=== PATIENT | female | born 1960 | race African-American/Black ===

== ENCOUNTER 2020-09-08 05:31 | Day surgery (SDC) | payer OTHER ==
[2020-09-06 17:18] VITALS: BMI 30.7
[2020-09-08] MEDS ORDERED: POVIDONE-IODINE OINTMENT 10% - 28.4 GM TUBE ONE (15:14)
[2020-09-08] MEDS ORDERED: HEPARIN NA (PORCINE) 5,000 UNITS/ML 1ML VIAL ONE ×2 (15:14→17:24)
[2020-09-08] MEDS ORDERED: LIDOCAINE HCL 1%, 10 MG/ML (20ML VIAL) ONE (15:14)
[2020-09-08] MEDS ORDERED: PROPOFOL 20 ML ONE (15:39)
[2020-09-08] MEDS ORDERED: MIDAZOLAM HCL 2 MG/2 ML SINGLE DOSE VIAL ONE (15:40)
[2020-09-08] MEDS ORDERED: oxyCODONE HCL 5 MG TABLET PO PRN (16:11)
[2020-09-08] MEDS ORDERED: ONDANSETRON 4 MG/2 ML VIAL IVPUSH PRN (16:11)
[2020-09-08] MEDS ORDERED: ceFAZolin SODIUM 1 GM VIAL IVPB ONE (16:35)
[2020-09-08] MEDS ORDERED: ceFAZolin SODIUM 1 GM VIAL ONE (16:36)
[2020-09-08] MEDS ORDERED: LIDOCAINE HCL 1%, 10 MG/ML (20ML VIAL) NR ONE (16:49)
[2020-09-08] MEDS ORDERED: ROCURONIUM BROMIDE 50 MG/5 ML SYRINGE ONE (16:52)
[2020-09-08] MEDS ORDERED: ONDANSETRON 4 MG/2 ML VIAL ONE (18:18)
[2020-09-08 19:13] VITALS: TEMP 98.2
[2020-09-08 20:04] VITALS: BP 139/84; PULSE 70
== END 2020-09-08 20:00 | disposition home or self-care (01) ==
LOC: JASU-SURG 05:31
PROVIDERS: ATTEND Surgery Vascular Surgery
PROC: 03180ZD Bypass Left Brachial Artery to Upper Arm Vein, Open Approach (ICD-10-PCS; principal; 2020-09-08 16:00)
DX: I12.0 Hypertensive chronic kidney disease with stage 5 chronic kidney disease or end stage renal disease (principal); N18.6 End stage renal disease
CPT/HCPCS: 94760; J1644

== ENCOUNTER 2020-11-28 15:07 | Inpatient (IN) | payer OTHER ==
[2020-11-28] MEDS ORDERED: SODIUM CHLORIDE 250 ML IV PRN ×2 (16:21→19:11)
[2020-11-28 16:46] LABS: BASO % 0.9 % (0-2.0); EOS % 3.6 % (0-4.5); HEMATOCRIT 28.4 % (32.4-45.2); HEMOGLOBIN 9.7 GM/dL (10.7-15.3); LYMPH % 25.1 % (8-40); MCHC 34.3 g/dl (32.0-36.0); MEAN CELL VOLUME 96.3 fl (80-96); MEAN PLT VOLUME 8.7 fl (7.5-11.1); MONO % 9.5 % (3.8-10.2); NEUT % 60.9 % (42.8-82.8); PLATELET COUNT 125 K/MM3 (134-434); RBC 2.94 M/mm3 (3.60-5.2); WHITE BLOOD COUNT 4.8 K/mm3 (4.0-10.0)
[2020-11-28 17:07] LABS: POTASSIUM 3.7 mmol/L (3.5-5.1)
[2020-11-28 17:09] LABS: BLOOD UREA NITROGEN 82.7 mg/dL (7-18); CALCIUM 8.5 mg/dL (8.5-10.1)
[2020-11-28 17:10] LABS: ALBUMIN 3.3 g/dl (3.4-5.0)
[2020-11-28 17:14] LABS: BILIRUBIN,TOTAL 0.4 mg/dL (0.2-1)
[2020-11-28] MEDS ORDERED: EPOETIN ALFA-EPBX 4,000 UNIT/ML VIAL SQ ONE ×3 (17:43→19:15)
[2020-11-28] MEDS ORDERED: HEPARIN NA (PORCINE) 5,000 UNITS/ML 1ML VIAL SQ SCH (22:00)
[2020-11-29 00:28] VITALS: BMI 28.0
[2020-11-29] MEDS ORDERED: LIDOCAINE 2.5%/PRILOCAINE 2.5% (5 Gram/TUBE) TP ONE (08:00)
[2020-11-29 09:11] LABS: MAGNESIUM 2.1 mg/dL (1.8-2.4)
[2020-11-29] MEDS ORDERED: amLODIPine BESYLATE 10 MG TABLET (FP) PO SCH (10:00)
[2020-11-29] MEDS ORDERED: ATENOLOL 25 MG TABLET (FP) PO SCH (10:00)
[2020-11-29] MEDS ORDERED: ABACAVIR/DOLUTEGRAVIR/LAMIVUDI (TRIUMEQ) TABLET -NF PO SCH (10:00)
[2020-11-29 10:05] LABS: POTASSIUM 3.7 mmol/L (3.5-5.1)
[2020-11-29 10:10] LABS: ALBUMIN 3.3 g/dl (3.4-5.0)
[2020-11-29 10:12] LABS: BILIRUBIN,TOTAL 0.4 mg/dL (0.2-1); CREATININE 5.3 mg/dL (0.55-1.3)
[2020-11-29 10:22] LABS: BLOOD UREA NITROGEN 53.2 mg/dL (7-18); CALCIUM 8.5 mg/dL (8.5-10.1)
[2020-11-29 10:37] LABS: HEMATOCRIT 26.4 % (32.4-45.2); HEMOGLOBIN 9.3 GM/dL (10.7-15.3); MCH 33.6 pg (25.7-33.7); MCHC 35.3 g/dl (32.0-36.0); MEAN PLT VOLUME 8.7 fl (7.5-11.1); PLATELET COUNT 118 K/MM3 (134-434); RBC 2.78 M/mm3 (3.60-5.2); RDW 14.9 % (11.6-15.6); WHITE BLOOD COUNT 5.1 K/mm3 (4.0-10.0)
[2020-11-29] MEDS ORDERED: LOSARTAN POTASSIUM 50 MG TABLET PO SCH (11:15)
[2020-11-29] MEDS ORDERED: PT OWN MED DRAWER 7, Y5N ONE (12:05)
[2020-11-29 13:19] VITALS: PULSE 78; TEMP 98.8
[2020-11-29 14:37] VITALS: BP 135/87
== END 2020-11-29 17:44 | disposition home or self-care (01) | DRG 683 ==
LOC: JER 15:07 → JERBED 16:22 → J6S 20:49
PROVIDERS: ADMIT Student in an Organized Health Care Education/Training Program; ATTEND Internal Medicine
PROC: 5A1D70Z Performance of Urinary Filtration, Intermittent, Less than 6 Hours Per Day (ICD-10-PCS; principal; 2020-11-28)
DX: N17.9 Acute kidney failure, unspecified (principal); I12.0 Hypertensive chronic kidney disease with stage 5 chronic kidney disease or end stage renal disease; N18.6 End stage renal disease; F17.210 Nicotine dependence, cigarettes, uncomplicated; D63.1 Anemia in chronic kidney disease; Z21 Asymptomatic human immunodeficiency virus [HIV] infection status; I16.0 Hypertensive urgency; N25.0 Renal osteodystrophy
CPT/HCPCS: 36415; 71045-TC-FY; 80053; 83735; 83970; 84100; 85025; 85027; 93005; 93010; 99285-25; C9803; Q5106; U0003

== ENCOUNTER 2020-12-07 11:37 | Inpatient (IN) | payer OTHER ==
[2020-12-07 13:03] LABS: BASO % 1.4 % (0-2.0); EOS % 4.6 % (0-4.5); HEMATOCRIT 27.8 % (32.4-45.2); HEMOGLOBIN 9.3 GM/dL (10.7-15.3); LYMPH % 25.8 % (8-40); MCH 33.1 pg (25.7-33.7); MCHC 33.3 g/dl (32.0-36.0); MEAN CELL VOLUME 99.4 fl (80-96); MEAN PLT VOLUME 8.7 fl (7.5-11.1); MONO % 8.7 % (3.8-10.2); NEUT % 59.5 % (42.8-82.8); PLATELET COUNT 139 K/MM3 (134-434); WHITE BLOOD COUNT 5.6 K/mm3 (4.0-10.0)
[2020-12-07 13:09] LABS: INR 1.01 (0.83-1.09); PROTHROMBIN TIME (PATIENT) 12.2 SEC (9.7-13.0)
[2020-12-07 13:11] LABS: ACTIVATED PTT 30.7 SECONDS (25.2-36.5)
[2020-12-07 13:29] LABS: POTASSIUM 3.7 mmol/L (3.5-5.1)
[2020-12-07 13:30] LABS: BLOOD UREA NITROGEN 49.3 mg/dL (7-18); CALCIUM 8.7 mg/dL (8.5-10.1)
[2020-12-07 13:31] LABS: ALBUMIN 3.2 g/dl (3.4-5.0)
[2020-12-07 13:34] LABS: CREATININE 5.2 mg/dL (0.55-1.3)
[2020-12-07 13:35] LABS: BILIRUBIN,TOTAL 0.4 mg/dL (0.2-1); TOT PROT 7.8 g/dl (6.4-8.2)
[2020-12-07] MEDS ORDERED: ACETAMINOPHEN 1000 MG/100 ML VIAL (NON FORMULARY) IVPB ONE (15:45)
[2020-12-07] MEDS ORDERED: ACETAMINOPHEN INJECTION 100 ML IVPB ONE ×2 (15:50→16:08)
[2020-12-07] MEDS ORDERED: morphine CARPU-JECT 2 MG/1 ML DISP.SYRIN IVPUSH ONE (20:24)
[2020-12-07] MEDS ORDERED: MORPHINE SULFATE 2 MG/ML VIAL ONE (20:49)
[2020-12-07] MEDS ORDERED: ACETAMINOPHEN 325 MG TABLET (FP) PO PRN (23:11)
[2020-12-07] MEDS ORDERED: VANCOMYCIN 1 GM in D5W (PRE-DOCKED) 1,000 MG/250 ML IVPB ONE (23:26)
[2020-12-08] MEDS ORDERED: amLODIPine BESYLATE 10 MG TABLET (FP) PO ONE (02:23)
[2020-12-08] MEDS: HEPARIN NA (PORCINE) 5,000 UNITS/ML 1ML VIAL SQ SCH ×3 (05:45→23:05)
[2020-12-08 07:38] LABS: EOS % 4.7 % (0-4.5); HEMATOCRIT 25.2 % (32.4-45.2); HEMOGLOBIN 8.6 GM/dL (10.7-15.3); LYMPH % 30.6 % (8-40); MCH 33.4 pg (25.7-33.7); MCHC 34.1 g/dl (32.0-36.0); MEAN CELL VOLUME 97.8 fl (80-96); MEAN PLT VOLUME 8.2 fl (7.5-11.1); MONO % 8.4 % (3.8-10.2); NEUT % 55.3 % (42.8-82.8); PLATELET COUNT 124 K/MM3 (134-434); RBC 2.58 M/mm3 (3.60-5.2); RDW 15.4 % (11.6-15.6)
[2020-12-08 08:19] LABS: POTASSIUM 3.4 mmol/L (3.5-5.1)
[2020-12-08 08:24] LABS: ALBUMIN 2.9 g/dl (3.4-5.0); MAGNESIUM 2.3 mg/dL (1.8-2.4)
[2020-12-08 08:27] LABS: CREATININE 5.1 mg/dL (0.55-1.3)
[2020-12-08 08:29] LABS: BILIRUBIN,TOTAL 0.4 mg/dL (0.2-1); TOT PROT 7.2 g/dl (6.4-8.2)
[2020-12-08] MEDS ORDERED: NICOTINE 14 MG/24 HOURS TOPICAL PATCH TD SCH (10:00)
[2020-12-08] MEDS ORDERED: LOSARTAN POTASSIUM 50 MG TABLET PO SCH (10:00)
[2020-12-08] MEDS ORDERED: ABACAVIR/DOLUTEGRAVIR/LAMIVUDI (TRIUMEQ) TABLET -NF PO SCH (10:00)
[2020-12-08] MEDS ORDERED: VANCOMYCIN 1 GM in D5W (PRE-DOCKED) 1,000 MG/250 ML IVPB SCH (10:00)
[2020-12-08] MEDS ORDERED: ATENOLOL 25 MG TABLET (FP) PO SCH (10:00)
[2020-12-08] MEDS ORDERED: amLODIPine BESYLATE 10 MG TABLET (FP) PO SCH (10:00)
[2020-12-08] MEDS ORDERED: VANCOMYCIN 1 GM in D5W (PRE-DOCKED) 1,000 MG/250 ML IVPB ONE (11:30)
[2020-12-08] MEDS ORDERED: SODIUM CHLORIDE 250 ML IV PRN ×3 (12:20→20:44)
[2020-12-08] MEDS ORDERED: ACETAMINOPHEN 1000 MG/100 ML VIAL (NON FORMULARY) IVPB ONE (14:04)
[2020-12-08] MEDS ORDERED: HEPARIN NA (PORCINE) 5,000 UNITS/ML 1ML VIAL ONE (15:53)
[2020-12-08] MEDS ORDERED: LIDOCAINE HCL 1%, 10 MG/ML (20ML VIAL) ONE (15:53)
[2020-12-08] MEDS ORDERED: LIDOCAINE HCL 1%, 10 MG/ML (20ML VIAL) INF ONE (16:51)
[2020-12-08] MEDS ORDERED: LIDOCAINE 2.5%/PRILOCAINE 2.5% 30 GRAM TUBE TP ONE ×2 (17:00→19:11)
[2020-12-08] MEDS ORDERED: EPOETIN ALFA-EPBX 20,000 UNIT/ML VIAL SQ ONE ×2 (17:15→20:45)
[2020-12-08] MEDS ORDERED: ceFAZolin SODIUM 1 GM VIAL IVPB ONE (17:27)
[2020-12-08] MEDS ORDERED: MIDAZOLAM HCL 2 MG/2 ML SINGLE DOSE VIAL ONE ×2 (17:31→18:35)
[2020-12-08] MEDS ORDERED: ceFAZolin SODIUM 1 GM VIAL ONE (17:37)
[2020-12-08] MEDS ORDERED: PROPOFOL 20 ML ONE (17:50)
[2020-12-08] MEDS ORDERED: ONDANSETRON 4 MG/2 ML VIAL IVPUSH PRN (19:08)
[2020-12-08] MEDS ORDERED: LOSARTAN POTASSIUM 50 MG TABLET PO ONE ×2 (21:20→21:21)
[2020-12-08] MEDS: ACETAMINOPHEN 325 MG TABLET (FP) PO PRN (23:02)
[2020-12-09] MEDS: ACETAMINOPHEN 325 MG TABLET (FP) PO PRN ×3 (04:36→20:21)
[2020-12-09] MEDS: HEPARIN NA (PORCINE) 5,000 UNITS/ML 1ML VIAL SQ SCH ×3 (06:18→21:26)
[2020-12-09 07:49] LABS: HEMATOCRIT 25.6 % (32.4-45.2); HEMOGLOBIN 8.5 GM/dL (10.7-15.3); MCH 32.6 pg (25.7-33.7); MEAN CELL VOLUME 98.8 fl (80-96); MEAN PLT VOLUME 8.5 fl (7.5-11.1); PLATELET COUNT 123 K/MM3 (134-434); RBC 2.59 M/mm3 (3.60-5.2); RDW 15.3 % (11.6-15.6); WHITE BLOOD COUNT 6.4 K/mm3 (4.0-10.0)
[2020-12-09 08:32] LABS: POTASSIUM 3.6 mmol/L (3.5-5.1)
[2020-12-09 08:43] LABS: CALCIUM 8.9 mg/dL (8.5-10.1)
[2020-12-09 08:44] LABS: BLOOD UREA NITROGEN 36.2 mg/dL (7-18); MAGNESIUM 2.2 mg/dL (1.8-2.4)
[2020-12-09 08:45] LABS: BILIRUBIN,TOTAL 0.6 mg/dL (0.2-1)
[2020-12-09 08:46] LABS: CREATININE 4.3 mg/dL (0.55-1.3); PHOSPHOROUS 3.3 mg/dL (2.5-4.9)
[2020-12-09 08:48] LABS: TOT PROT 7.3 g/dl (6.4-8.2)
[2020-12-09] MEDS: NICOTINE 14 MG/24 HOURS TOPICAL PATCH TD SCH (09:18)
[2020-12-09] MEDS: amLODIPine BESYLATE 10 MG TABLET (FP) PO SCH (09:19)
[2020-12-09] MEDS: LOSARTAN POTASSIUM 50 MG TABLET PO SCH (09:19)
[2020-12-09] MEDS: ATENOLOL 25 MG TABLET (FP) PO SCH (09:19)
[2020-12-09] MEDS: ABACAVIR/DOLUTEGRAVIR/LAMIVUDI (TRIUMEQ) TABLET -NF PO SCH (09:22)
[2020-12-09] MEDS ORDERED: amLODIPine BESYLATE 10 MG TABLET (FP) PO SCH (10:00)
[2020-12-09] MEDS ORDERED: VANCOMYCIN 1 GM in D5W (PRE-DOCKED) 1,000 MG/250 ML IVPB ONE (13:52)
[2020-12-10] MEDS: HEPARIN NA (PORCINE) 5,000 UNITS/ML 1ML VIAL SQ SCH (05:57)
[2020-12-10] MEDS: ACETAMINOPHEN 325 MG TABLET (FP) PO PRN (06:26)
[2020-12-10 08:09] LABS: BASO % 0.9 % (0-2.0); HEMATOCRIT 24.8 % (32.4-45.2); HEMOGLOBIN 8.4 GM/dL (10.7-15.3); MCH 33.5 pg (25.7-33.7); MCHC 33.9 g/dl (32.0-36.0); MEAN CELL VOLUME 98.8 fl (80-96); MEAN PLT VOLUME 8.6 fl (7.5-11.1); MONO % 8.8 % (3.8-10.2); NEUT % 59.3 % (42.8-82.8); PLATELET COUNT 109 K/MM3 (134-434); RBC 2.51 M/mm3 (3.60-5.2); RDW 14.9 % (11.6-15.6)
[2020-12-10 08:23] LABS: BILIRUBIN,TOTAL 0.6 mg/dL (0.2-1); BLOOD UREA NITROGEN 44.3 mg/dL (7-18); CALCIUM 8.4 mg/dL (8.5-10.1); CREATININE 5.9 mg/dL (0.55-1.3); PHOSPHOROUS 3.2 mg/dL (2.5-4.9); POTASSIUM 3.3 mmol/L (3.5-5.1); TOT PROT 7.1 g/dl (6.4-8.2)
[2020-12-10 09:41] VITALS: BP 150/85; PULSE 59; TEMP 98.7
[2020-12-10] MEDS: amLODIPine BESYLATE 10 MG TABLET (FP) PO SCH (09:41)
[2020-12-10] MEDS: ATENOLOL 25 MG TABLET (FP) PO SCH (09:41)
[2020-12-10] MEDS: LOSARTAN POTASSIUM 50 MG TABLET PO SCH (09:41)
[2020-12-10] MEDS: ABACAVIR/DOLUTEGRAVIR/LAMIVUDI (TRIUMEQ) TABLET -NF PO SCH (09:42)
[2020-12-10] MEDS: NICOTINE 14 MG/24 HOURS TOPICAL PATCH TD SCH (09:42)
== END 2020-12-10 11:49 | disposition home or self-care (01) | DRG 252 ==
LOC: JER 11:37 → JERBED 19:39 → J7W 12-08 00:49
PROVIDERS: ADMIT Internal Medicine; ATTEND Internal Medicine
PROC: 037Y3ZZ Dilation of Upper Artery, Percutaneous Approach (ICD-10-PCS; 2020-12-08)
PROC: B51NYZZ Fluoroscopy of Left Upper Extremity Veins using Other Contrast (ICD-10-PCS; 2020-12-08)
PROC: 3E03317 Introduction of Other Thrombolytic into Peripheral Vein, Percutaneous Approach (ICD-10-PCS; 2020-12-08)
PROC: 02H633Z Insertion of Infusion Device into Right Atrium, Percutaneous Approach (ICD-10-PCS; 2020-12-08)
PROC: B548ZZA Ultrasonography of Superior Vena Cava, Guidance (ICD-10-PCS; 2020-12-08)
PROC: 05CY3ZZ Extirpation of Matter from Upper Vein, Percutaneous Approach (ICD-10-PCS; principal; 2020-12-08 17:30)
DX: T82.868A Thrombosis due to vascular prosthetic devices, implants and grafts, initial encounter (principal); N18.6 End stage renal disease; I12.0 Hypertensive chronic kidney disease with stage 5 chronic kidney disease or end stage renal disease; Y83.8 Other surgical procedures as the cause of abnormal reaction of the patient, or of later complication, without mention of misadventure at the time of the procedure; Z99.2 Dependence on renal dialysis; E66.9 Obesity, unspecified; D63.1 Anemia in chronic kidney disease; Z68.30 Body mass index [BMI] 30.0-30.9, adult; Z21 Asymptomatic human immunodeficiency virus [HIV] infection status
CPT/HCPCS: 36415; 71045-TC-FY; 76000-TC-FY; 80053; 82607; 82728; 82746; 83540; 83550; 83735; 84100; 85025; 85027; 85045; 85610; 85730; 86850; 86870; 86900; 86901; 86902; 86922; 87040; 93005; 93010; 93930; 93971; 94760; 99285-25; C9803; G0480; J0131; J1644; U0003

== ENCOUNTER 2021-02-01 04:25 | Day surgery (SDC) | payer OTHER ==
[2021-01-30 10:11] VITALS: BMI 25.9
[~2021-02-01 04:25] MED LIST: LIDOCAINE HCL 1%, 10 MG/ML (20ML VIAL) NR ONE
[2021-02-01 13:48] VITALS: BP 130/72; PULSE 57; TEMP 98
[2021-02-01] MEDS ORDERED: HEPARIN NA (PORCINE) 5,000 UNITS/ML 1ML VIAL ONE (14:25)
[2021-02-01] MEDS ORDERED: LIDOCAINE HCL 1%, 10 MG/ML (20ML VIAL) ONE (14:25)
== END 2021-02-01 17:56 | disposition home or self-care (01) ==
LOC: JASU-SURG 04:25
PROVIDERS: ATTEND Surgery Vascular Surgery
DX: Z53.8 Procedure and treatment not carried out for other reasons (principal)
CPT/HCPCS: 36415; 84132; J1644

== ENCOUNTER 2021-02-08 04:47 | Day surgery (SDC) | payer OTHER ==
[2021-02-08] MEDS ORDERED: HEPARIN NA (PORCINE) 5,000 UNITS/ML 1ML VIAL ONE ×2 (07:18→09:49)
[2021-02-08] MEDS ORDERED: POVIDONE-IODINE OINTMENT 10% - 28.4 GM TUBE ONE (07:19)
[2021-02-08] MEDS ORDERED: LIDOCAINE HCL 1%, 10 MG/ML (20ML VIAL) ONE (07:19)
[2021-02-08 08:04] VITALS: BMI 25.9
[2021-02-08 08:35] LABS: HEMATOCRIT 34.8 % (32.4-45.2); HEMOGLOBIN 11.4 GM/dL (10.7-15.3); MCH 33.9 pg (25.7-33.7); MCHC 32.6 g/dl (32.0-36.0); MEAN PLT VOLUME 9.2 fl (7.5-11.1); PLATELET COUNT 142 K/MM3 (134-434); RBC 3.35 M/mm3 (3.60-5.2); RDW 14.5 % (11.6-15.6); WHITE BLOOD COUNT 5.7 K/mm3 (4.0-10.0)
[2021-02-08 08:43] LABS: INR 1.07 (0.83-1.09); PROTHROMBIN TIME (PATIENT) 13.1 SEC (9.7-13.0)
[2021-02-08 08:45] LABS: ACTIVATED PTT 27.4 SECONDS (25.2-36.5)
[2021-02-08 09:01] LABS: BLOOD UREA NITROGEN 35.6 mg/dL (7-18)
[2021-02-08 09:05] LABS: CREATININE 6.6 mg/dL (0.55-1.3)
[2021-02-08] MEDS ORDERED: PROPOFOL 20 ML ONE (09:22)
[2021-02-08] MEDS ORDERED: MIDAZOLAM HCL 2 MG/2 ML SINGLE DOSE VIAL ONE (09:22)
[2021-02-08] MEDS ORDERED: ceFAZolin 2 GRAM PREMIX BAG IVPB ONE (09:25)
[2021-02-08] MEDS ORDERED: ceFAZolin SODIUM 1 GM VIAL ONE (09:25)
[2021-02-08] MEDS ORDERED: LIDOCAINE HCL 1%, 10 MG/ML (20ML VIAL) NR ONE (09:29)
[2021-02-08] MEDS ORDERED: POVIDONE-IODINE OINTMENT 10% - 28.4 GM TUBE TP ONE (10:25)
[2021-02-08] MEDS ORDERED: ACETAMINOPHEN 325 MG TABLET (FP) ONE (11:31)
[2021-02-08] MEDS ORDERED: ACETAMINOPHEN 325 MG TABLET (FP) PO ONE (11:40)
[2021-02-08] MEDS ORDERED: ONDANSETRON 4 MG/2 ML VIAL IVPUSH PRN (12:20)
[2021-02-08] MEDS ORDERED: ACETAMINOPHEN 325 MG TABLET (FP) PO PRN (12:20)
[2021-02-08] MEDS ORDERED: oxyCODONE HCL 5 MG TABLET PO PRN ×2 (12:20)
[2021-02-08] MEDS ORDERED: LACTATED RINGERS SOLUTION 1,000 ML IV SCH (12:30)
[2021-02-08 15:29] VITALS: TEMP 97.7
[2021-02-08 18:03] VITALS: BP 120/70; PULSE 70
== END 2021-02-08 12:05 | disposition home or self-care (01) ==
LOC: JASU-SURG 04:47
PROVIDERS: ATTEND Surgery Vascular Surgery
PROC: 03170ZD Bypass Right Brachial Artery to Upper Arm Vein, Open Approach (ICD-10-PCS; principal; 2021-02-08 08:30)
DX: I12.0 Hypertensive chronic kidney disease with stage 5 chronic kidney disease or end stage renal disease (principal); N18.6 End stage renal disease; Z99.2 Dependence on renal dialysis
CPT/HCPCS: 36415; 80048; 85027; 85610; 85730; 94760; J1644

== ENCOUNTER 2021-05-13 10:51 | Emergency (ER) | payer OTHER ==
[2021-05-13 11:06] VITALS: BP 148/99; PULSE 85; TEMP 97; BMI 29.6
== END 2021-05-13 12:52 | disposition home or self-care (01) ==
LOC: JER 10:51
DX: M25.551 Pain in right hip (principal)
CPT/HCPCS: 73523-TC-FY; 99283-25

== ENCOUNTER 2021-05-16 23:57 | Inpatient (IN) | payer OTHER ==
[2021-05-17 01:44] LABS: BASO % 0.4 % (0-2.0); EOS % 0.4 % (0-4.5); HEMATOCRIT 21.7 % (32.4-45.2); HEMOGLOBIN 7.4 GM/dL (10.7-15.3); LYMPH % 9.5 % (8-40); MCH 33.6 pg (25.7-33.7); MCHC 34.1 g/dl (32.0-36.0); MEAN CELL VOLUME 98.4 fl (80-96); MEAN PLT VOLUME 8.2 fl (7.5-11.1); MONO % 10.4 % (3.8-10.2); NEUT % 79.3 % (42.8-82.8); PLATELET COUNT 405 10^3/uL (134-434); RBC 2.21 M/mm3 (3.60-5.2); RDW 16.5 % (11.6-15.6)
[2021-05-17 02:10] LABS: CHLORIDE 102 mmol/L (98-107); SODIUM 135 mmol/L (136-145)
[2021-05-17 02:11] LABS: CALCIUM 8.1 mg/dL (8.5-10.1)
[2021-05-17 02:13] LABS: ALBUMIN 2.1 g/dl (3.4-5.0); ANION GAP 13 MMOL/L (8-16); BLOOD UREA NITROGEN 82.3 mg/dL (7-18); CO2 19 mmol/L (21-32); GLUCOSE,RANDOM 125 mg/dL (74-106); MAGNESIUM 2.2 mg/dL (1.8-2.4)
[2021-05-17 02:16] LABS: CREATININE 7.1 mg/dL (0.55-1.3); SGOT/AST 10 U/L (15-37); SGPT/ALT 17 U/L (13-61)
[2021-05-17 02:19] LABS: ALK PHOS 153 U/L (45-117)
[2021-05-17] MEDS ORDERED: ACETAMINOPHEN 1000 MG/100 ML VIAL (NON FORMULARY) IVPB ONE ×2 (02:33→11:19)
[2021-05-17] MEDS ORDERED: ACETAMINOPHEN INJECTION 100 ML IVPB ONE (02:34)
[2021-05-17 03:22] LABS: BILIRUBIN,TOTAL 0.5 mg/dL (0.2-1); N-TERMINAL BNP 36188.6 pg/ml (5-125)
[2021-05-17 08:10] LABS: BASO % 0.2 % (0-2.0); EOS % 0.6 % (0-4.5); HEMATOCRIT 20.8 % (32.4-45.2); LYMPH % 14.9 % (8-40); MCH 33.6 pg (25.7-33.7); MCHC 33.2 g/dl (32.0-36.0); MEAN CELL VOLUME 101.4 fl (80-96); MEAN PLT VOLUME 7.5 fl (7.5-11.1); MONO % 11.1 % (3.8-10.2); NEUT % 73.2 % (42.8-82.8); PLATELET COUNT 301 10^3/uL (134-434); RBC 2.06 M/mm3 (3.60-5.2); RDW 15.4 % (11.6-15.6); RETICULOCYTES 3.14 % (0.5-1.5); WHITE BLOOD COUNT 8.5 K/mm3 (4.0-10.0)
[2021-05-17 08:21] LABS: CALCIUM 8.1 mg/dL (8.5-10.1)
[2021-05-17 08:22] LABS: ALBUMIN 1.9 g/dl (3.4-5.0); BLOOD UREA NITROGEN 85.1 mg/dL (7-18)
[2021-05-17 08:24] LABS: MAGNESIUM 2.4 mg/dL (1.8-2.4)
[2021-05-17 08:26] LABS: PHOSPHOROUS 7.1 mg/dL (2.5-4.9)
[2021-05-17 08:27] LABS: BILIRUBIN,TOTAL 0.6 mg/dL (0.2-1); CREATININE 7.1 mg/dL (0.55-1.3)
[2021-05-17 08:29] LABS: TOT PROT 7.4 g/dl (6.4-8.2)
[2021-05-17 08:40] LABS: HEMOGLOBIN 6.9 GM/dL (10.7-15.3)
[2021-05-17] MEDS ORDERED: HEPARIN NA (PORCINE) 5,000 UNITS/ML 1ML VIAL ONE (08:59)
[2021-05-17] MEDS: HEPARIN NA (PORCINE) 5,000 UNITS/ML 1ML VIAL SQ SCH ×3 (08:59→22:31)
[2021-05-17 09:44] LABS: EPI CELLS >36 /uL (0-25.1); HYALINE CASTS 5 /uL (0-3.1); URINE APPEARANCE TURBID; URINE BACTERIA 3790 /uL (0-1359); URINE BILIRUBIN NEGATIVE (NEGATIVE); URINE COLOR YELLOW; URINE GLUCOSE (UA) NEGATIVE (NEGATIVE); URINE KETONE NEGATIVE (NEGATIVE); URINE LEUK ESTERASE 1+ (NEGATIVE); URINE NITRITE NEGATIVE (NEGATIVE); URINE PROTEIN 1+ (NEGATIVE); URINE RBC 15 /uL (0-23.9); URINE UROBILINOGEN 0.2 mg/dL (0.2-1.0); URINE WBC 144 /uL (0-25.8)
[2021-05-17 10:44] LABS: YEAST NON SEEN (NEGATIVE)
[2021-05-17] MEDS ORDERED: EPOETIN ALFA-EPBX 20,000 UNIT/ML VIAL SQ ONE ×2 (10:52)
[2021-05-17] MEDS ORDERED: SODIUM CHLORIDE 250 ML IV PRN ×2 (10:52→16:54)
[2021-05-17] MEDS: amLODIPine BESYLATE 5 MG TABLET (FP) PO SCH (11:00)
[2021-05-17] MEDS ORDERED: PT OWN MED DRAWER 7, Y5N ONE (11:31)
[2021-05-17 12:13] VITALS: BMI 29.2
[2021-05-17] MEDS ORDERED: HEPARIN NA (PORCINE) 5,000 UNITS/ML 1ML VIAL IVPUSH ONE ×2 (12:30→14:30)
[2021-05-17] MEDS ORDERED: EPOETIN ALFA-EPBX 10,000 UNIT, EPOETIN ALFA-EPBX 4,000 UNIT IVPUSH ONE (13:00)
[2021-05-17] MEDS: ABACAVIR/DOLUTEGRAVIR/LAMIVUDI (TRIUMEQ) TABLET -NF PO SCH (13:27)
[2021-05-18] MEDS ORDERED: ACETAMINOPHEN 1000 MG/100 ML VIAL (NON FORMULARY) IVPB ONE (00:12)
[2021-05-18] MEDS: HEPARIN NA (PORCINE) 5,000 UNITS/ML 1ML VIAL SQ SCH ×3 (06:27→21:24)
[2021-05-18 09:29] LABS: BASO % 0.2 % (0-2.0); EOS % 0.4 % (0-4.5); HEMATOCRIT 25.3 % (32.4-45.2); HEMOGLOBIN 8.5 GM/dL (10.7-15.3); LYMPH % 12.9 % (8-40); MCH 33.1 pg (25.7-33.7); MCHC 33.5 g/dl (32.0-36.0); MEAN CELL VOLUME 98.7 fl (80-96); MEAN PLT VOLUME 7.9 fl (7.5-11.1); MONO % 8.3 % (3.8-10.2); NEUT % 78.2 % (42.8-82.8); PLATELET COUNT 362 10^3/uL (134-434); RBC 2.57 M/mm3 (3.60-5.2); RDW 16.4 % (11.6-15.6); WHITE BLOOD COUNT 11.4 K/mm3 (4.0-10.0)
[2021-05-18] MEDS ORDERED: VANCOMYCIN 1 GRAM (PRE-DOCKED) 1,000 MG/250 ML BAG IVPB ONE (09:45)
[2021-05-18 09:52] LABS: ALBUMIN 2.1 g/dl (3.4-5.0)
[2021-05-18 09:54] LABS: CREATININE 4.8 mg/dL (0.55-1.3)
[2021-05-18 09:56] LABS: BILIRUBIN,TOTAL 0.6 mg/dL (0.2-1); TOT PROT 8.4 g/dl (6.4-8.2)
[2021-05-18] MEDS: LOSARTAN POTASSIUM 50 MG TABLET PO SCH (09:56)
[2021-05-18] MEDS: amLODIPine BESYLATE 5 MG TABLET (FP) PO SCH (09:57)
[2021-05-18] MEDS: ATENOLOL 25 MG TABLET (FP) PO SCH (09:58)
[2021-05-18 10:00] LABS: CALCIUM 8.4 mg/dL (8.5-10.1)
[2021-05-18] MEDS ORDERED: EPOETIN ALFA-EPBX 10,000 UNIT, EPOETIN ALFA-EPBX 3,000 UNIT, EPOETIN ALFA-EPBX 2,000 UNIT IVPUSH ONE (10:00)
[2021-05-18] MEDS ORDERED: ACETAMINOPHEN 325 MG TABLET (FP) PO PRN (10:20)
[2021-05-18 10:30] LABS: BLOOD UREA NITROGEN 46.5 mg/dL (7-18)
[2021-05-18] MEDS ORDERED: HEPARIN NA (PORCINE) 5,000 UNITS/ML 1ML VIAL IVPUSH ONE (10:30)
[2021-05-18] MEDS: ACETAMINOPHEN 325 MG TABLET (FP) PO PRN ×2 (10:50→21:25)
[2021-05-18] MEDS: ABACAVIR/DOLUTEGRAVIR/LAMIVUDI (TRIUMEQ) TABLET -NF PO SCH (14:30)
[2021-05-18] MEDS ORDERED: EPOETIN ALFA-EPBX 20,000 UNIT/ML VIAL SQ ONE (16:54)
[2021-05-19] MEDS: ACETAMINOPHEN 325 MG TABLET (FP) PO PRN ×2 (05:14→17:23)
[2021-05-19] MEDS: HEPARIN NA (PORCINE) 5,000 UNITS/ML 1ML VIAL SQ SCH ×3 (05:15→21:11)
[2021-05-19 09:58] LABS: BASO % 0.3 % (0-2.0); EOS % 0.4 % (0-4.5); HEMATOCRIT 23.5 % (32.4-45.2); LYMPH % 9.2 % (8-40); MCH 33.2 pg (25.7-33.7); MCHC 33.9 g/dl (32.0-36.0); MEAN CELL VOLUME 98.2 fl (80-96); MEAN PLT VOLUME 7.5 fl (7.5-11.1); MONO % 9.7 % (3.8-10.2); NEUT % 80.4 % (42.8-82.8); PLATELET COUNT 309 10^3/uL (134-434); RBC 2.39 M/mm3 (3.60-5.2); RDW 16.8 % (11.6-15.6); WHITE BLOOD COUNT 11.3 K/mm3 (4.0-10.0)
[2021-05-19 10:24] LABS: CALCIUM 8.3 mg/dL (8.5-10.1)
[2021-05-19 10:25] LABS: ALBUMIN 1.9 g/dl (3.4-5.0); BLOOD UREA NITROGEN 34.2 mg/dL (7-18)
[2021-05-19] MEDS: LOSARTAN POTASSIUM 50 MG TABLET PO SCH (10:28)
[2021-05-19 10:29] LABS: CREATININE 4.4 mg/dL (0.55-1.3)
[2021-05-19] MEDS: ATENOLOL 25 MG TABLET (FP) PO SCH (10:29)
[2021-05-19] MEDS: ABACAVIR/DOLUTEGRAVIR/LAMIVUDI (TRIUMEQ) TABLET -NF PO SCH (10:29)
[2021-05-19] MEDS: amLODIPine BESYLATE 5 MG TABLET (FP) PO SCH (10:29)
[2021-05-19 10:30] LABS: BILIRUBIN,TOTAL 0.6 mg/dL (0.2-1)
[2021-05-19 10:36] LABS: TOT PROT 8.7 g/dl (6.4-8.2)
[2021-05-19] MEDS ORDERED: ONDANSETRON 4 MG/2 ML VIAL IVPUSH PRN (14:39)
[2021-05-19] MEDS ORDERED: ONDANSETRON 4 MG/2 ML VIAL IVPUSH ONE (15:00)
[2021-05-19] MEDS ORDERED: ONDANSETRON *ODT* 4 MG TABLET SL ONE (15:00)
[2021-05-19] MEDS ORDERED: CEFAZOLIN 2 GM in DEXTROSE 5%-WATER - 100 ML IVPB ONE (17:00)
[2021-05-20] MEDS: HEPARIN NA (PORCINE) 5,000 UNITS/ML 1ML VIAL SQ SCH ×3 (06:33→21:42)
[2021-05-20] MEDS: ACETAMINOPHEN 325 MG TABLET (FP) PO PRN (06:57)
[2021-05-20 08:24] LABS: BASO % 0.4 % (0-2.0); EOS % 0.9 % (0-4.5); HEMATOCRIT 23.4 % (32.4-45.2); LYMPH % 12.1 % (8-40); MCH 34.1 pg (25.7-33.7); MCHC 34.3 g/dl (32.0-36.0); MEAN CELL VOLUME 99.4 fl (80-96); MEAN PLT VOLUME 8.1 fl (7.5-11.1); NEUT % 77.6 % (42.8-82.8); PLATELET COUNT 329 10^3/uL (134-434); RBC 2.36 M/mm3 (3.60-5.2); RDW 16.1 % (11.6-15.6); WHITE BLOOD COUNT 10.7 K/mm3 (4.0-10.0)
[2021-05-20 08:50] LABS: BLOOD UREA NITROGEN 48.1 mg/dL (7-18); CALCIUM 8.4 mg/dL (8.5-10.1); MAGNESIUM 2.1 mg/dL (1.8-2.4)
[2021-05-20 08:53] LABS: CREATININE 5.7 mg/dL (0.55-1.3)
[2021-05-20 08:55] LABS: PHOSPHOROUS 4.6 mg/dL (2.5-4.9)
[2021-05-20] MEDS ORDERED: PT OWN MED DRAWER 7, Y5N ONE (10:24)
[2021-05-20] MEDS: ATENOLOL 25 MG TABLET (FP) PO SCH (10:52)
[2021-05-20] MEDS: amLODIPine BESYLATE 5 MG TABLET (FP) PO SCH (10:52)
[2021-05-20] MEDS: ABACAVIR/DOLUTEGRAVIR/LAMIVUDI (TRIUMEQ) TABLET -NF PO SCH (10:52)
[2021-05-20] MEDS: LOSARTAN POTASSIUM 50 MG TABLET PO SCH (10:57)
[2021-05-20] MEDS ORDERED: LORazepam 1 MG TABLET PO PRN (12:22)
[2021-05-20] MEDS ORDERED: ACETAMINOPHEN 1000 MG/100 ML VIAL (NON FORMULARY) IVPB ONE (13:00)
[2021-05-20] MEDS ORDERED: CEFAZOLIN 1 GM/D5W 1 GM/50 ML BAG IVPB SCH (15:00)
[2021-05-21] MEDS: ACETAMINOPHEN 325 MG TABLET (FP) PO PRN ×3 (02:07→16:08)
[2021-05-21] MEDS: HEPARIN NA (PORCINE) 5,000 UNITS/ML 1ML VIAL SQ SCH ×3 (07:08→21:29)
[2021-05-21 08:45] LABS: HEMATOCRIT 24.5 % (32.4-45.2); HEMOGLOBIN 8.2 GM/dL (10.7-15.3); MCH 33.4 pg (25.7-33.7); MCHC 33.5 g/dl (32.0-36.0); MEAN CELL VOLUME 99.9 fl (80-96); MEAN PLT VOLUME 7.9 fl (7.5-11.1); PLATELET COUNT 322 10^3/uL (134-434); RBC 2.45 M/mm3 (3.60-5.2); RDW 16.6 % (11.6-15.6)
[2021-05-21 09:09] LABS: ALBUMIN 1.9 g/dl (3.4-5.0); BLOOD UREA NITROGEN 72.3 mg/dL (7-18); CALCIUM 8.1 mg/dL (8.5-10.1); MAGNESIUM 2.3 mg/dL (1.8-2.4)
[2021-05-21 09:11] LABS: PHOSPHOROUS 5.8 mg/dL (2.5-4.9)
[2021-05-21] MEDS ORDERED: PT OWN MED DRAWER 7, Y5N ONE ×4 (09:11→20:59)
[2021-05-21 09:12] LABS: BILIRUBIN,TOTAL 0.4 mg/dL (0.2-1); TOT PROT 7.6 g/dl (6.4-8.2)
[2021-05-21] MEDS: ABACAVIR/DOLUTEGRAVIR/LAMIVUDI (TRIUMEQ) TABLET -NF PO SCH (09:49)
[2021-05-21] MEDS ORDERED: EPOETIN ALFA-EPBX 20,000 UNIT/ML VIAL IVPUSH ONE (10:00)
[2021-05-21] MEDS: LOSARTAN POTASSIUM 50 MG TABLET PO SCH (10:00)
[2021-05-21] MEDS: amLODIPine BESYLATE 5 MG TABLET (FP) PO SCH (10:00)
[2021-05-21] MEDS ORDERED: SODIUM CHLORIDE 250 ML IV PRN (10:00)
[2021-05-21] MEDS: ATENOLOL 25 MG TABLET (FP) PO SCH (10:00)
[2021-05-21] MEDS: NAFCILLIN - 2 GM in DEXTROSE 5%-WATER - 100 ML IVPB SCH ×3 (16:05→21:31)
[2021-05-22] MEDS ORDERED: PT OWN MED DRAWER 7, Y5N ONE ×6 (01:37→22:06)
[2021-05-22] MEDS: NAFCILLIN - 2 GM in DEXTROSE 5%-WATER - 100 ML IVPB SCH ×6 (01:53→22:09)
[2021-05-22] MEDS: HEPARIN NA (PORCINE) 5,000 UNITS/ML 1ML VIAL SQ SCH ×3 (05:17→22:09)
[2021-05-22 10:17] LABS: BASO % 0.7 % (0-2.0); EOS % 0.9 % (0-4.5); HEMATOCRIT 24.8 % (32.4-45.2); HEMOGLOBIN 8.1 GM/dL (10.7-15.3); LYMPH % 18.5 % (8-40); MCH 32.8 pg (25.7-33.7); MCHC 32.8 g/dl (32.0-36.0); MEAN PLT VOLUME 8.4 fl (7.5-11.1); MONO % 9.6 % (3.8-10.2); NEUT % 70.3 % (42.8-82.8); PLATELET COUNT 268 10^3/uL (134-434); RBC 2.48 M/mm3 (3.60-5.2); RDW 16.6 % (11.6-15.6); WHITE BLOOD COUNT 6.8 K/mm3 (4.0-10.0)
[2021-05-22 10:29] LABS: CHLORIDE 100 mmol/L (98-107); SODIUM 137 mmol/L (136-145)
[2021-05-22 10:32] LABS: CALCIUM 7.7 mg/dL (8.5-10.1)
[2021-05-22 10:33] LABS: ALBUMIN 1.8 g/dl (3.4-5.0); ANION GAP 7 MMOL/L (8-16); CO2 31 mmol/L (21-32); GLUCOSE,RANDOM 116 mg/dL (74-106); MAGNESIUM 1.9 mg/dL (1.8-2.4)
[2021-05-22 10:35] LABS: SGPT/ALT < 6 U/L (13-61)
[2021-05-22 10:36] LABS: CREATININE 4.6 mg/dL (0.55-1.3); PHOSPHOROUS 4.5 mg/dL (2.5-4.9); SGOT/AST 10 U/L (15-37)
[2021-05-22 10:37] LABS: TOT PROT 7.5 g/dl (6.4-8.2)
[2021-05-22 10:38] LABS: ALK PHOS 140 U/L (45-117)
[2021-05-22 10:39] LABS: BLOOD UREA NITROGEN 38.2 mg/dL (7-18)
[2021-05-22] MEDS: LOSARTAN POTASSIUM 50 MG TABLET PO SCH (11:09)
[2021-05-22] MEDS: ATENOLOL 25 MG TABLET (FP) PO SCH (11:09)
[2021-05-22] MEDS: amLODIPine BESYLATE 5 MG TABLET (FP) PO SCH (11:09)
[2021-05-22] MEDS: ABACAVIR/DOLUTEGRAVIR/LAMIVUDI (TRIUMEQ) TABLET -NF PO SCH (11:10)
[2021-05-22] MEDS ORDERED: SODIUM CHLORIDE 250 ML IV PRN (12:28)
[2021-05-23] MEDS ORDERED: PT OWN MED DRAWER 7, Y5N ONE ×6 (01:22→21:14)
[2021-05-23] MEDS: NAFCILLIN - 2 GM in DEXTROSE 5%-WATER - 100 ML IVPB SCH ×6 (01:25→21:29)
[2021-05-23] MEDS: HEPARIN NA (PORCINE) 5,000 UNITS/ML 1ML VIAL SQ SCH ×3 (05:42→21:29)
[2021-05-23] MEDS ORDERED: SODIUM CHLORIDE 250 ML IV PRN (09:01)
[2021-05-23] MEDS ORDERED: EPOETIN ALFA-EPBX 20,000 UNIT/ML VIAL IVPUSH ONE (09:15)
[2021-05-23 10:07] LABS: HEMATOCRIT 24.5 % (32.4-45.2); HEMOGLOBIN 8.1 GM/dL (10.7-15.3); MCH 33.1 pg (25.7-33.7); MEAN CELL VOLUME 100.4 fl (80-96); MEAN PLT VOLUME 8.6 fl (7.5-11.1); PLATELET COUNT 301 10^3/uL (134-434); RBC 2.44 M/mm3 (3.60-5.2); WHITE BLOOD COUNT 7.4 K/mm3 (4.0-10.0)
[2021-05-23 10:21] LABS: CHLORIDE 96 mmol/L (98-107); SODIUM 135 mmol/L (136-145)
[2021-05-23 10:22] LABS: CALCIUM 7.9 mg/dL (8.5-10.1)
[2021-05-23 10:23] LABS: ANION GAP 11 MMOL/L (8-16); BLOOD UREA NITROGEN 52.4 mg/dL (7-18); CO2 28 mmol/L (21-32); GLUCOSE,RANDOM 172 mg/dL (74-106)
[2021-05-23 10:26] LABS: CREATININE 5.8 mg/dL (0.55-1.3); PHOSPHOROUS 5.8 mg/dL (2.5-4.9)
[2021-05-23] MEDS: amLODIPine BESYLATE 5 MG TABLET (FP) PO SCH (13:45)
[2021-05-23] MEDS: ACETAMINOPHEN 325 MG TABLET (FP) PO PRN (13:46)
[2021-05-23] MEDS: LOSARTAN POTASSIUM 50 MG TABLET PO SCH (13:47)
[2021-05-23] MEDS: ATENOLOL 25 MG TABLET (FP) PO SCH (13:47)
[2021-05-23] MEDS: ABACAVIR/DOLUTEGRAVIR/LAMIVUDI (TRIUMEQ) TABLET -NF PO SCH (13:48)
[2021-05-23] MEDS ORDERED: LORazepam 1 MG TABLET PO ONE (16:30)
[2021-05-24] MEDS ORDERED: PT OWN MED DRAWER 7, Y5N ONE ×4 (01:10→21:06)
[2021-05-24] MEDS: NAFCILLIN - 2 GM in DEXTROSE 5%-WATER - 100 ML IVPB SCH ×6 (01:12→21:12)
[2021-05-24 09:28] LABS: BASO % 0.4 % (0-2.0); EOS % 1.6 % (0-4.5); HEMATOCRIT 23.4 % (32.4-45.2); HEMOGLOBIN 7.8 GM/dL (10.7-15.3); LYMPH % 22.2 % (8-40); MCH 33.8 pg (25.7-33.7); MCHC 33.3 g/dl (32.0-36.0); MEAN CELL VOLUME 101.5 fl (80-96); MEAN PLT VOLUME 8.8 fl (7.5-11.1); MONO % 15.1 % (3.8-10.2); NEUT % 60.7 % (42.8-82.8); PLATELET COUNT 245 10^3/uL (134-434); RDW 17.5 % (11.6-15.6); WHITE BLOOD COUNT 6.3 K/mm3 (4.0-10.0)
[2021-05-24 09:52] LABS: CHLORIDE 98 mmol/L (98-107); SODIUM 138 mmol/L (136-145)
[2021-05-24 10:26] LABS: ALBUMIN 1.6 g/dl (3.4-5.0)
[2021-05-24 10:29] LABS: CREATININE 4.3 mg/dL (0.55-1.3); SGPT/ALT < 6 U/L (13-61)
[2021-05-24 10:30] LABS: SGOT/AST 6 U/L (15-37)
[2021-05-24 10:32] LABS: ALK PHOS 120 U/L (45-117)
[2021-05-24 10:44] LABS: ANION GAP 10 MMOL/L (8-16); BILIRUBIN,TOTAL 1.1 mg/dL (0.2-1); BLOOD UREA NITROGEN 29.2 mg/dL (7-18); CALCIUM 7.8 mg/dL (8.5-10.1); CO2 30 mmol/L (21-32); GLUCOSE,RANDOM 87 mg/dL (74-106); TOT PROT 7.5 g/dl (6.4-8.2)
[2021-05-24 11:51] LABS: BODY FLUID MONOCYTE 9 %; BODYL FLD EOSINOPHIL 1 %
[2021-05-24] MEDS: ATENOLOL 25 MG TABLET (FP) PO SCH (12:15)
[2021-05-24] MEDS: amLODIPine BESYLATE 5 MG TABLET (FP) PO SCH (12:15)
[2021-05-24] MEDS: LOSARTAN POTASSIUM 50 MG TABLET PO SCH (12:16)
[2021-05-24] MEDS: ABACAVIR/DOLUTEGRAVIR/LAMIVUDI (TRIUMEQ) TABLET -NF PO SCH (12:37)
[2021-05-24] MEDS ORDERED: SODIUM CHLORIDE 250 ML IV PRN (13:12)
[2021-05-24] MEDS ORDERED: POTASSIUM CHLORIDE TABS 20 MEQ TABLET.ER (FP) PO ONE (13:13)
[2021-05-24 17:25] LABS: CHOLESTEROL 123 mg/dL (50-200); TRIGLYCERIDES 148 mg/dL (0-150)
[2021-05-24 17:26] LABS: LDL CHOLESTEROL (ONLY SJRH) 54 mg/dL (5-100)
[2021-05-24 17:28] LABS: HDL CHOLESTEROL 39 mg/dL (40-60)
[2021-05-24] MEDS ORDERED: ATENOLOL 25 MG TABLET (FP) PO ONE (23:02)
[2021-05-25] MEDS: NAFCILLIN - 2 GM in DEXTROSE 5%-WATER - 100 ML IVPB SCH ×5 (02:25→18:48)
[2021-05-25] MEDS: ACETAMINOPHEN 325 MG TABLET (FP) PO PRN (05:21)
[2021-05-25] MEDS ORDERED: PT OWN MED DRAWER 7, Y5N ONE (09:24)
[2021-05-25] MEDS: ABACAVIR/DOLUTEGRAVIR/LAMIVUDI (TRIUMEQ) TABLET -NF PO SCH (09:30)
[2021-05-25] MEDS: LOSARTAN POTASSIUM 50 MG TABLET PO SCH (09:30)
[2021-05-25 09:37] LABS: INR 1.32 (0.83-1.09); PROTHROMBIN TIME (PATIENT) 15.8 SEC (9.7-13.0)
[2021-05-25] MEDS ORDERED: ATENOLOL 25 MG TABLET (FP) PO SCH (10:00)
[2021-05-25] MEDS ORDERED: amLODIPine BESYLATE 5 MG TABLET (FP) PO SCH (10:00)
[2021-05-25 12:19] LABS: HEMATOCRIT 24.7 % (32.4-45.2); HEMOGLOBIN 8.3 GM/dL (10.7-15.3); MCH 34.1 pg (25.7-33.7); MCHC 33.5 g/dl (32.0-36.0); MEAN CELL VOLUME 101.8 fl (80-96); MEAN PLT VOLUME 8.7 fl (7.5-11.1); PLATELET COUNT 256 10^3/uL (134-434); RBC 2.43 M/mm3 (3.60-5.2); RDW 17.5 % (11.6-15.6); WHITE BLOOD COUNT 6.4 K/mm3 (4.0-10.0)
[2021-05-25 12:47] LABS: BLOOD UREA NITROGEN 45.4 mg/dL (7-18); CALCIUM 7.7 mg/dL (8.5-10.1)
[2021-05-25 12:51] LABS: CREATININE 6.6 mg/dL (0.55-1.3); PHOSPHOROUS 6.6 mg/dL (2.5-4.9)
[2021-05-25] MEDS ORDERED: EPOETIN ALFA-EPBX 20,000 UNIT/ML VIAL IVPUSH ONE (15:30)
[2021-05-26 00:16] VITALS: BP 138/64; PULSE 78; TEMP 98.8
== END 2021-05-25 20:50 | disposition short-term general hospital (02) | DRG 698 ==
LOC: JER 23:57 → JERBED 05-17 02:03 → J6S 05-17 09:24
PROVIDERS: ADMIT Internal Medicine; ATTEND Internal Medicine
PROC: 30233N1 Transfusion of Nonautologous Red Blood Cells into Peripheral Vein, Percutaneous Approach (ICD-10-PCS; 2021-05-17)
PROC: 5A1D70Z Performance of Urinary Filtration, Intermittent, Less than 6 Hours Per Day (ICD-10-PCS; 2021-05-21)
PROC: 5A1D70Z Performance of Urinary Filtration, Intermittent, Less than 6 Hours Per Day (ICD-10-PCS; 2021-05-23)
PROC: 0S9D3ZZ Drainage of Left Knee Joint, Percutaneous Approach (ICD-10-PCS; principal; 2021-05-24)
PROC: 5A1D70Z Performance of Urinary Filtration, Intermittent, Less than 6 Hours Per Day (ICD-10-PCS; 2021-05-25)
DX: T82.49XA Other complication of vascular dialysis catheter, initial encounter (principal); N18.6 End stage renal disease; I71.01 Dissection of thoracic aorta; I12.0 Hypertensive chronic kidney disease with stage 5 chronic kidney disease or end stage renal disease; J90 Pleural effusion, not elsewhere classified; M00.862 Arthritis due to other bacteria, left knee; M86.8X8 Other osteomyelitis, other site; Z21 Asymptomatic human immunodeficiency virus [HIV] infection status; E78.00 Pure hypercholesterolemia, unspecified; F12.10 Cannabis abuse, uncomplicated; D63.1 Anemia in chronic kidney disease; D72.829 Elevated white blood cell count, unspecified; M25.562 Pain in left knee; M54.9 Dorsalgia, unspecified; N25.0 Renal osteodystrophy; F17.200 Nicotine dependence, unspecified, uncomplicated; M54.5 Low back pain; M17.12 Unilateral primary osteoarthritis, left knee; K21.9 Gastro-esophageal reflux disease without esophagitis; E11.22 Type 2 diabetes mellitus with diabetic chronic kidney disease; M25.451 Effusion, right hip; E87.6 Hypokalemia; Z99.2 Dependence on renal dialysis; Z22.321 Carrier or suspected carrier of Methicillin susceptible Staphylococcus aureus; B95.61 Methicillin susceptible Staphylococcus aureus infection as the cause of diseases classified elsewhere; Y83.8 Other surgical procedures as the cause of abnormal reaction of the patient, or of later complication, without mention of misadventure at the time of the procedure
CPT/HCPCS: 36415; 36430; 71046-TC-FY; 71250-TC; 71260-TC; 72100-TC-FY; 72146-TC; 72148-TC; 73562-TC-LT-FY; 80048; 80053; 80061; 81003; 82728; 83036; 83540; 83550; 83735; 83880; 84100; 84436; 84443; 84484; 85025; 85027; 85045; 85610; 85651; 86140; 86359; 86360; 86803; 86850; 86900; 86901; 86922; 87040; 87070; 87075; 87086; 87186; 87205; 87340; 87536; 89060; 93005; 93010; 93225; 93226; 93306-TC; 97116-GP; 97162-GP; 99285-25; C9803; G0480; J0131; J1644; P9058; Q0162; Q5106; U0003; U0005

== ENCOUNTER 2021-05-26 15:41 | Inpatient (IN) | payer OTHER ==
[2021-05-26] MEDS ORDERED: ACETAMINOPHEN 325 MG TABLET (FP) PO PRN (23:43)
[2021-05-27] MEDS: ACETAMINOPHEN 325 MG TABLET (FP) PO PRN ×2 (00:45→16:56)
[2021-05-27] MEDS ORDERED: PT OWN MED DRAWER 7, Y5N ONE (09:21)
[2021-05-27 09:31] LABS: BASO % 0.8 % (0-2.0); EOS % 2.5 % (0-4.5); HEMATOCRIT 24.6 % (32.4-45.2); HEMOGLOBIN 8.2 GM/dL (10.7-15.3); LYMPH % 17.6 % (8-40); MCH 34.4 pg (25.7-33.7); MCHC 33.4 g/dl (32.0-36.0); MEAN PLT VOLUME 8.7 fl (7.5-11.1); MONO % 9.7 % (3.8-10.2); NEUT % 69.4 % (42.8-82.8); PLATELET COUNT 259 10^3/uL (134-434); RBC 2.39 M/mm3 (3.60-5.2); RDW 18.6 % (11.6-15.6); WHITE BLOOD COUNT 6.2 K/mm3 (4.0-10.0)
[2021-05-27 09:49] LABS: CHLORIDE 100 mmol/L (98-107); SODIUM 138 mmol/L (136-145)
[2021-05-27 09:55] LABS: ALBUMIN 1.7 g/dl (3.4-5.0)
[2021-05-27 09:57] LABS: ANION GAP 8 MMOL/L (8-16); BLOOD UREA NITROGEN 34.1 mg/dL (7-18); CALCIUM 8.1 mg/dL (8.5-10.1); CO2 30 mmol/L (21-32)
[2021-05-27 09:58] LABS: GLUCOSE,RANDOM 109 mg/dL (74-106); MAGNESIUM 2.2 mg/dL (1.8-2.4)
[2021-05-27 10:01] LABS: CREATININE 6.7 mg/dL (0.55-1.3); SGOT/AST 13 U/L (15-37)
[2021-05-27 10:02] LABS: BILIRUBIN,TOTAL 0.9 mg/dL (0.2-1); TOT PROT 8.2 g/dl (6.4-8.2)
[2021-05-27 10:05] LABS: ALK PHOS 96 U/L (45-117)
[2021-05-27 10:07] LABS: SGPT/ALT < 6 U/L (13-61)
[2021-05-27] MEDS: amLODIPine BESYLATE 10 MG TABLET (FP) PO SCH (10:20)
[2021-05-27] MEDS: LOSARTAN POTASSIUM 50 MG TABLET PO SCH (10:20)
[2021-05-27] MEDS: ATENOLOL 25 MG TABLET (FP) PO SCH (10:20)
[2021-05-27] MEDS: HEPARIN NA (PORCINE) 5,000 UNITS/ML 1ML VIAL SQ SCH ×2 (10:20→22:00)
[2021-05-27] MEDS: ABACAVIR/DOLUTEGRAVIR/LAMIVUDI (TRIUMEQ) TABLET -NF PO SCH (10:22)
[2021-05-27] MEDS ORDERED: SODIUM CHLORIDE 250 ML IV PRN (18:12)
[2021-05-27 19:28] VITALS: BMI 29.3
[2021-05-27] MEDS: NAFCILLIN - 2 GM in DEXTROSE 5%-WATER - 100 ML IVPB SCH (23:30)
[2021-05-28] MEDS: ACETAMINOPHEN 325 MG TABLET (FP) PO PRN (00:47)
[2021-05-28] MEDS: NAFCILLIN - 2 GM in DEXTROSE 5%-WATER - 100 ML IVPB SCH ×6 (03:29→19:28)
[2021-05-28] MEDS ORDERED: PT OWN MED DRAWER 7, Y5N ONE ×3 (09:57→19:42)
[2021-05-28] MEDS: HEPARIN NA (PORCINE) 5,000 UNITS/ML 1ML VIAL SQ SCH (09:59)
[2021-05-28] MEDS: ABACAVIR/DOLUTEGRAVIR/LAMIVUDI (TRIUMEQ) TABLET -NF PO SCH (10:00)
[2021-05-28] MEDS: amLODIPine BESYLATE 10 MG TABLET (FP) PO SCH (10:02)
[2021-05-28] MEDS: ATENOLOL 25 MG TABLET (FP) PO SCH (10:02)
[2021-05-28] MEDS: LOSARTAN POTASSIUM 50 MG TABLET PO SCH (10:02)
[2021-05-28] MEDS ORDERED: CEFAZOLIN 2 GM in DEXTROSE 5%-WATER - 100 ML IVPB ONE (16:36)
[2021-05-28 18:50] VITALS: PULSE 80
[2021-05-28 18:54] VITALS: TEMP 98.2
[2021-05-28 20:14] VITALS: BP 146/88
== END 2021-05-28 21:15 | disposition left against medical advice (07) | DRG 299 ==
LOC: J6S 19:50
PROVIDERS: ADMIT Internal Medicine; ATTEND Internal Medicine
PROC: 5A1D70Z Performance of Urinary Filtration, Intermittent, Less than 6 Hours Per Day (ICD-10-PCS; principal; 2021-05-28)
DX: I71.01 Dissection of thoracic aorta (principal); N18.6 End stage renal disease; T82.49XA Other complication of vascular dialysis catheter, initial encounter; R78.81 Bacteremia; I12.0 Hypertensive chronic kidney disease with stage 5 chronic kidney disease or end stage renal disease; M86.8X8 Other osteomyelitis, other site; E78.00 Pure hypercholesterolemia, unspecified; D64.9 Anemia, unspecified; N25.0 Renal osteodystrophy; E11.22 Type 2 diabetes mellitus with diabetic chronic kidney disease; M17.12 Unilateral primary osteoarthritis, left knee; M25.462 Effusion, left knee; Z21 Asymptomatic human immunodeficiency virus [HIV] infection status; D63.1 Anemia in chronic kidney disease; Z99.2 Dependence on renal dialysis; F32.9 Major depressive disorder, single episode, unspecified; Y83.8 Other surgical procedures as the cause of abnormal reaction of the patient, or of later complication, without mention of misadventure at the time of the procedure
CPT/HCPCS: 36415; 71275-TC; 80053; 83735; 84100; 85025; 85651; 87040; J1644; Q9967

== ENCOUNTER 2021-10-05 20:08 | Inpatient (IN) | payer OTHER ==
[2021-10-05 21:38] LABS: BASO % 0.6 % (0-2.0); EOS % 1.2 % (0-4.5); HEMOGLOBIN 10.4 GM/dL (10.7-15.3); LYMPH % 23.8 % (8-40); MCH 32.2 pg (25.7-33.7); MCHC 33.7 g/dl (32.0-36.0); MEAN CELL VOLUME 95.8 fl (80-96); MEAN PLT VOLUME 7.6 fl (7.5-11.1); MONO % 11.5 % (3.8-10.2); NEUT % 62.9 % (42.8-82.8); PLATELET COUNT 153 10^3/uL (134-434); RBC 3.23 M/mm3 (3.60-5.2); RDW 16.6 % (11.6-15.6); WHITE BLOOD COUNT 2.1 K/mm3 (4.0-10.0)
[2021-10-05 21:49] LABS: MAGNESIUM 2.1 mg/dL (1.8-2.4)
[2021-10-05 21:51] LABS: ALBUMIN 3.2 g/dl (3.4-5.0); BLOOD UREA NITROGEN 37.7 mg/dL (7-18)
[2021-10-05 21:54] LABS: CREATININE 6.6 mg/dL (0.55-1.3)
[2021-10-05 21:55] LABS: BILIRUBIN,TOTAL 1.2 mg/dL (0.2-1); TOT PROT 8.8 g/dl (6.4-8.2)
[2021-10-05 23:06] LABS: EPI CELLS >36 /uL (0-25.1); HYALINE CASTS 6 /uL (0-3.1); URINE APPEARANCE CLOUDY; URINE BACTERIA 9 /uL (0-1359); URINE BILIRUBIN NEGATIVE (NEGATIVE); URINE COLOR DK YELLOW; URINE GLUCOSE (UA) NEGATIVE (NEGATIVE); URINE KETONE TRACE (NEGATIVE); URINE LEUK ESTERASE TRACE (NEGATIVE); URINE NITRITE NEGATIVE (NEGATIVE); URINE PROTEIN 3+ (NEGATIVE); URINE RBC 6 /uL (0-23.9); URINE UROBILINOGEN 0.2 mg/dL (0.2-1.0); URINE WBC 38 /uL (0-25.8)
[2021-10-05] MEDS ORDERED: KCL 10 MEQ IVPB 30 MEQ/300 ML INFUS.BAG IVPB ONE (23:19)
[2021-10-05] MEDS: KCL 10 MEQ IVPB 10 MEQ/100 ML INFUS.BAG IVPB SCH (23:28)
[2021-10-05] MEDS ORDERED: CEFTRIAXONE 1,000 MG in DEXTROSE 5%-WATER - 50 ML IVPB ONE (23:28)
[2021-10-06] MEDS ORDERED: CEFTRIAXONE 1 GM/50 ML BAG ONE (00:15)
[2021-10-06] MEDS: KCL 10 MEQ IVPB 10 MEQ/100 ML INFUS.BAG IVPB SCH ×2 (01:09→03:13)
[2021-10-06] MEDS ORDERED: PIPERACILLIN/TAZOB 2.25 GM 2.25 GM/50 ML BAG IVPB ONE (03:14)
[2021-10-06] MEDS: PIPERACILLIN/TAZOB 2.25 GM 2.25 GM in DEXTROSE 5%-WATER - 50 ML IVPB SCH ×3 (04:04→18:14)
[2021-10-06 05:08] VITALS: BMI 24.5
[2021-10-06] MEDS: HEPARIN NA (PORCINE) 5,000 UNITS/ML 1ML VIAL SQ SCH ×3 (06:41→21:43)
[2021-10-06] MEDS ORDERED: VANCOMYCIN 1 GM in D5W (PRE-DOCKED) 1,000 MG/250 ML IVPB SCH (10:00)
[2021-10-06 10:38] LABS: HEMATOCRIT 28.8 % (32.4-45.2); HEMOGLOBIN 9.8 GM/dL (10.7-15.3); MCH 32.5 pg (25.7-33.7); MCHC 33.9 g/dl (32.0-36.0); MEAN CELL VOLUME 95.8 fl (80-96); MEAN PLT VOLUME 7.8 fl (7.5-11.1); PLATELET COUNT 142 10^3/uL (134-434); RBC 3.01 M/mm3 (3.60-5.2)
[2021-10-06] MEDS ORDERED: DEXTROSE 5%-WATER - 50 ML IVPB ONE (10:45)
[2021-10-06] MEDS ORDERED: PIPERACILLIN/TAZOBACTAM 2.25 GM VIAL IVPB ONE (10:45)
[2021-10-06 10:55] LABS: CHLORIDE 100 mmol/L (98-107); SODIUM 136 mmol/L (136-145)
[2021-10-06 11:02] LABS: ALBUMIN 2.9 g/dl (3.4-5.0); ANION GAP 12 MMOL/L (8-16); BLOOD UREA NITROGEN 50.6 mg/dL (7-18); CALCIUM 8.1 mg/dL (8.5-10.1); CO2 24 mmol/L (21-32); GLUCOSE,RANDOM 94 mg/dL (74-106)
[2021-10-06 11:04] LABS: PHOSPHOROUS 5.1 mg/dL (2.5-4.9); SGPT/ALT 17 U/L (13-61)
[2021-10-06 11:05] LABS: SGOT/AST 39 U/L (15-37)
[2021-10-06 11:07] LABS: ALK PHOS 71 U/L (45-117)
[2021-10-06 11:10] LABS: WHITE BLOOD COUNT 1.9 K/mm3 (4.0-10.0)
[2021-10-06 11:33] LABS: CREATININE 8.5 mg/dL (0.55-1.3)
[2021-10-06 12:02] LABS: ANISOCYTOSIS 2+; MACROCYTOSIS 2+; PLATELET ESTIMATE DECREASED
[2021-10-06] MEDS ORDERED: SODIUM CHLORIDE 250 ML IV PRN (15:51)
[2021-10-07] MEDS ORDERED: PIPERACILLIN/TAZOBACTAM 2.25 GM VIAL IVPB ONE ×2 (02:50→10:48)
[2021-10-07] MEDS ORDERED: DEXTROSE 5%-WATER - 50 ML IVPB ONE ×2 (02:50→10:49)
[2021-10-07] MEDS: PIPERACILLIN/TAZOB 2.25 GM 2.25 GM in DEXTROSE 5%-WATER - 50 ML IVPB SCH ×3 (02:53→17:43)
[2021-10-07] MEDS: HEPARIN NA (PORCINE) 5,000 UNITS/ML 1ML VIAL SQ SCH ×3 (05:57→21:35)
[2021-10-07] MEDS ORDERED: DEXAMETHASONE SOD PHOSPHATE 4 MG/1 ML VIAL IVPUSH ONE (13:27)
[2021-10-07] MEDS: REMDESIVIR 200 MG in SODIUM CHLORIDE 250 ML IVPB ONE ×4 (16:07→21:00)
[2021-10-08 02:48] LABS: SYPHILIS W/ RPR CONF NON-REACTIVE (NONREACTIVE)
[2021-10-08] MEDS ORDERED: DEXTROSE 5%-WATER - 50 ML IVPB ONE (03:08)
[2021-10-08] MEDS ORDERED: PIPERACILLIN/TAZOBACTAM 2.25 GM VIAL IVPB ONE (03:08)
[2021-10-08] MEDS: PIPERACILLIN/TAZOB 2.25 GM 2.25 GM in DEXTROSE 5%-WATER - 50 ML IVPB SCH ×3 (03:15→17:39)
[2021-10-08] MEDS: HEPARIN NA (PORCINE) 5,000 UNITS/ML 1ML VIAL SQ SCH ×3 (05:58→22:25)
[2021-10-08] MEDS: DEXAMETHASONE SOD PHOSPHATE 10 MG/1 ML VIAL IVPUSH SCH (09:33)
[2021-10-08] MEDS ORDERED: EPOETIN ALFA-EPBX 4,000 UNIT/ML VIAL IVPUSH ONE (11:30)
[2021-10-08] MEDS: NYSTATIN 500,000 UNITS/5 ML SUSPENSION PO SCH ×2 (12:10→17:57)
[2021-10-08 12:28] LABS: INR 1.15 (0.83-1.09); PROTHROMBIN TIME (PATIENT) 13.3 SEC (9.7-13.0)
[2021-10-08 12:35] LABS: BASO % 0.1 % (0-2.0); HEMATOCRIT 28.3 % (32.4-45.2); HEMOGLOBIN 9.2 GM/dL (10.7-15.3); LYMPH % 28.4 % (8-40); MCH 31.5 pg (25.7-33.7); MCHC 32.4 g/dl (32.0-36.0); MEAN CELL VOLUME 97.4 fl (80-96); MEAN PLT VOLUME 8.4 fl (7.5-11.1); MONO % 9.9 % (3.8-10.2); NEUT % 60.6 % (42.8-82.8); PLATELET COUNT 175 10^3/uL (134-434); RBC 2.91 M/mm3 (3.60-5.2); RDW 16.4 % (11.6-15.6); WHITE BLOOD COUNT 2.5 K/mm3 (4.0-10.0)
[2021-10-08 13:17] LABS: CHLORIDE 102 mmol/L (98-107); SODIUM 141 mmol/L (136-145)
[2021-10-08 13:19] LABS: ALBUMIN 2.8 g/dl (3.4-5.0)
[2021-10-08 13:20] LABS: ANION GAP 10 MMOL/L (8-16); BLOOD UREA NITROGEN 41.8 mg/dL (7-18); CALCIUM 8.4 mg/dL (8.5-10.1); CO2 29 mmol/L (21-32)
[2021-10-08 13:21] LABS: GLUCOSE,RANDOM 104 mg/dL (74-106)
[2021-10-08 13:23] LABS: IRON SERUM 57 ug/dL (50-175); SGOT/AST 24 U/L (15-37)
[2021-10-08 13:24] LABS: SGPT/ALT 14 U/L (13-61); TOTAL IRON BINDING CAPACITY 135 ug/dL (250-450)
[2021-10-08 13:25] LABS: BILIRUBIN,TOTAL 0.8 mg/dL (0.2-1); TOT PROT 7.9 g/dl (6.4-8.2)
[2021-10-08 13:26] LABS: ALK PHOS 70 U/L (45-117)
[2021-10-08 13:38] LABS: CREATININE 7.7 mg/dL (0.55-1.3)
[2021-10-08] MEDS ORDERED: SODIUM CHLORIDE 250 ML IV PRN (14:45)
[2021-10-08] MEDS ORDERED: cefTAZidime PENTAHYDRATE 1 GM/10 ML SYRINGE (RESTRICTED TO ID) IVPUSH ONE (15:00)
[2021-10-09] MEDS: NYSTATIN 500,000 UNITS/5 ML SUSPENSION PO SCH ×4 (00:50→17:23)
[2021-10-09] MEDS: PIPERACILLIN/TAZOB 2.25 GM 2.25 GM in DEXTROSE 5%-WATER - 50 ML IVPB SCH ×2 (03:00→10:14)
[2021-10-09] MEDS: HEPARIN NA (PORCINE) 5,000 UNITS/ML 1ML VIAL SQ SCH ×3 (06:40→21:01)
[2021-10-09] MEDS: DEXAMETHASONE SOD PHOSPHATE 10 MG/1 ML VIAL IVPUSH SCH (10:14)
[2021-10-09 13:24] LABS: CALCIUM 8.6 mg/dL (8.5-10.1)
[2021-10-09 13:25] LABS: ALBUMIN 2.9 g/dl (3.4-5.0); BLOOD UREA NITROGEN 27.1 mg/dL (7-18); MAGNESIUM 1.4 mg/dL (1.8-2.4)
[2021-10-09 13:28] LABS: CREATININE 6.1 mg/dL (0.55-1.3); PHOSPHOROUS 2.8 mg/dL (2.5-4.9)
[2021-10-09 13:29] LABS: BILIRUBIN,TOTAL 0.8 mg/dL (0.2-1); TOT PROT 8.4 g/dl (6.4-8.2)
[2021-10-09 20:28] LABS: BASO % 0.3 % (0-2.0); EOS % 2.4 % (0-4.5); HEMATOCRIT 29.1 % (32.4-45.2); HEMOGLOBIN 9.4 GM/dL (10.7-15.3); LYMPH % 21.2 % (8-40); MCH 32.1 pg (25.7-33.7); MCHC 32.3 g/dl (32.0-36.0); MEAN CELL VOLUME 99.5 fl (80-96); MEAN PLT VOLUME 9.1 fl (7.5-11.1); MONO % 10.5 % (3.8-10.2); NEUT % 65.6 % (42.8-82.8); PLATELET COUNT 195 10^3/uL (134-434); RBC 2.93 M/mm3 (3.60-5.2); RDW 16.7 % (11.6-15.6); WHITE BLOOD COUNT 4.3 K/mm3 (4.0-10.0)
[2021-10-10] MEDS: NYSTATIN 500,000 UNITS/5 ML SUSPENSION PO SCH ×4 (00:32→17:27)
[2021-10-10] MEDS: HEPARIN NA (PORCINE) 5,000 UNITS/ML 1ML VIAL SQ SCH ×3 (05:12→22:07)
[2021-10-10] MEDS: VANCOMYCIN 1 GM in D5W (PRE-DOCKED) 1,000 MG/250 ML IVPB SCH (08:56)
[2021-10-10] MEDS: DEXAMETHASONE SOD PHOSPHATE 10 MG/1 ML VIAL IVPUSH SCH (09:12)
[2021-10-10] MEDS ORDERED: SODIUM CHLORIDE 250 ML IV PRN (16:16)
[2021-10-10 17:20] LABS: HEMATOCRIT 26.8 % (32.4-45.2); HEMOGLOBIN 8.6 GM/dL (10.7-15.3); MCH 31.8 pg (25.7-33.7); MCHC 32.2 g/dl (32.0-36.0); MEAN CELL VOLUME 98.6 fl (80-96); MEAN PLT VOLUME 9.3 fl (7.5-11.1); PLATELET COUNT 187 10^3/uL (134-434); RBC 2.72 M/mm3 (3.60-5.2); RDW 16.2 % (11.6-15.6); WHITE BLOOD COUNT 3.3 K/mm3 (4.0-10.0)
[2021-10-10 17:23] LABS: CHLORIDE 101 mmol/L (98-107); SODIUM 140 mmol/L (136-145)
[2021-10-10 17:25] LABS: CALCIUM 8.6 mg/dL (8.5-10.1)
[2021-10-10 17:26] LABS: ALBUMIN 2.7 g/dl (3.4-5.0); ANION GAP 10 MMOL/L (8-16); BLOOD UREA NITROGEN 43.9 mg/dL (7-18); CO2 29 mmol/L (21-32); GLUCOSE,RANDOM 106 mg/dL (74-106)
[2021-10-10 17:29] LABS: PHOSPHOROUS 3.4 mg/dL (2.5-4.9); SGOT/AST 20 U/L (15-37); SGPT/ALT 14 U/L (13-61)
[2021-10-10 17:30] LABS: BILIRUBIN,TOTAL 0.5 mg/dL (0.2-1); TOT PROT 7.5 g/dl (6.4-8.2)
[2021-10-10 17:32] LABS: ALK PHOS 80 U/L (45-117); CREATININE 8.6 mg/dL (0.55-1.3)
[2021-10-10 21:20] LABS: ANISOCYTOSIS 1+; MACROCYTOSIS 1+; OVALOCYTE 1+; PLATELET ESTIMATE NORMAL
[2021-10-11] MEDS: NYSTATIN 500,000 UNITS/5 ML SUSPENSION PO SCH ×4 (00:15→17:35)
[2021-10-11] MEDS: HEPARIN NA (PORCINE) 5,000 UNITS/ML 1ML VIAL SQ SCH ×2 (06:21→14:06)
[2021-10-11] MEDS: DEXAMETHASONE SOD PHOSPHATE 10 MG/1 ML VIAL IVPUSH SCH (11:54)
[2021-10-11 13:55] LABS: BASO % 0.5 % (0-2.0); EOS % 2.3 % (0-4.5); HEMOGLOBIN 9.1 GM/dL (10.7-15.3); LYMPH % 21.7 % (8-40); MCH 31.6 pg (25.7-33.7); MCHC 31.5 g/dl (32.0-36.0); MEAN CELL VOLUME 100.1 fl (80-96); MEAN PLT VOLUME 8.8 fl (7.5-11.1); MONO % 11.5 % (3.8-10.2); PLATELET COUNT 199 10^3/uL (134-434); RBC 2.89 M/mm3 (3.60-5.2); RDW 16.2 % (11.6-15.6); WHITE BLOOD COUNT 4.5 K/mm3 (4.0-10.0)
[2021-10-11 14:08] LABS: CALCIUM 8.8 mg/dL (8.5-10.1)
[2021-10-11 14:09] LABS: BLOOD UREA NITROGEN 23.8 mg/dL (7-18)
[2021-10-11 14:13] LABS: CREATININE 5.7 mg/dL (0.55-1.3); PHOSPHOROUS 3.5 mg/dL (2.5-4.9)
[2021-10-11 14:27] VITALS: BP 99/53; PULSE 90; TEMP 98.2
== END 2021-10-11 18:38 | disposition home or self-care (01) | DRG 177 ==
LOC: JER 20:08 → JERBED 22:19 → J6S 10-06 04:39
PROVIDERS: ADMIT Internal Medicine
PROC: 5A1D70Z Performance of Urinary Filtration, Intermittent, Less than 6 Hours Per Day (ICD-10-PCS; principal; 2021-10-06)
PROC: XW033E5 Introduction of Remdesivir Anti-infective into Peripheral Vein, Percutaneous Approach, New Technology Group 5 (ICD-10-PCS; 2021-10-07)
PROC: 5A1D70Z Performance of Urinary Filtration, Intermittent, Less than 6 Hours Per Day (ICD-10-PCS; 2021-10-08)
PROC: 5A1D70Z Performance of Urinary Filtration, Intermittent, Less than 6 Hours Per Day (ICD-10-PCS; 2021-10-10)
DX: U07.1 COVID-19 (principal); G93.41 Metabolic encephalopathy; N18.6 End stage renal disease; J12.82 Pneumonia due to coronavirus disease 2019; N39.0 Urinary tract infection, site not specified; I12.0 Hypertensive chronic kidney disease with stage 5 chronic kidney disease or end stage renal disease; E87.6 Hypokalemia; Z21 Asymptomatic human immunodeficiency virus [HIV] infection status; F32.A Depression, unspecified; F39 Unspecified mood [affective] disorder; D70.9 Neutropenia, unspecified; D72.819 Decreased white blood cell count, unspecified; D63.1 Anemia in chronic kidney disease; Z99.2 Dependence on renal dialysis
CPT/HCPCS: 36415; 70450-TC; 70551-TC; 71045-TC-FY; 80048; 80053; 81003; 82140; 82550; 82553; 82607; 82728; 83540; 83550; 83735; 84100; 84425; 84443; 84484; 85025; 85027; 85045; 85379; 85610; 86140; 86359; 86360; 86780; 86803; 86850; 86870; 86880; 86900; 86901; 86902; 87040; 87086; 87340; 87804; 93005; 93010; 93880-TC; 94761; 97116-GP; 97162-GP; 99285-25; C9399; C9803; J1644; Q5106; U0003; U0005

== ENCOUNTER 2023-10-10 15:34 | Inpatient (IN) | payer BC, OTHER ==
[2023-10-10] MEDS ORDERED: DOXYCYCLINE INJECTION 100 MG in DEXTROSE 5%-WATER 100 ML IVPB ONE (16:17)
[2023-10-10] MEDS ORDERED: FLUCONAZOLE 100 MG TABLET (UD) PO ONE (16:18)
[2023-10-10] MEDS ORDERED: FLUCONAZOLE 100 MG TABLET (UD) ONE ×2 (16:52→16:53)
[2023-10-10] MEDS ORDERED: DOXYCYCLINE HYCLATE 100 MG VIAL ONE (17:56)
[2023-10-10 18:03] LABS: HEMATOCRIT 38.5 % (32.4-45.2); HEMOGLOBIN 12.2 GM/dL (10.7-15.3); MCH 30.8 pg (25.7-33.7); MCHC 31.7 g/dl (32.0-36.0); RBC 3.96 M/mm3 (3.60-5.2); RDW 18.6 % (11.6-15.6); WHITE BLOOD COUNT 3.4 K/mm3 (4.0-10.0)
[2023-10-10 18:21] LABS: POTASSIUM 3.3 mmol/L (3.5-5.1)
[2023-10-10 18:25] LABS: ALBUMIN 2.7 g/dl (3.4-5.0); CALCIUM 8.7 mg/dL (8.5-10.1)
[2023-10-10 18:28] LABS: CREATININE 3.9 mg/dL (0.55-1.3); URIC ACID 2.7 mg/dL (2.6-7.2)
[2023-10-10 18:30] LABS: BILIRUBIN,TOTAL 0.6 mg/dL (0.2-1)
[2023-10-10] MEDS ORDERED: PERMETHRIN 5% TOPICAL CREAM 60 GM TUBE TP ONE (18:31)
[2023-10-10] MEDS ORDERED: DOXYCYCLINE HYCLATE 100 MG CAPSULE PO ONE ×2 (18:35→20:13)
[2023-10-10 18:48] LABS: SYPHILIS W/ RPR CONF NON-REACTIVE (NONREACTIVE)
[2023-10-10 18:53] LABS: PLATELET COUNT 94 10^3/uL (134-434)
[2023-10-10] MEDS ORDERED: ACETAMINOPHEN 325 MG TABLET (FP) PO PRN ×2 (19:37→21:13)
[2023-10-10] MEDS ORDERED: ACETAMINOPHEN 325 MG TABLET (FP) ONE (20:14)
[2023-10-10] MEDS ORDERED: VANCOMYCIN 1 GRAM (PRE-DOCKED) 1,000 MG/250 ML BAG IVPB ONE ×2 (21:36→21:45)
[2023-10-10] MEDS ORDERED: PIPERACILLIN/TAZOB 2.25 GM 2.25 GM/50 ML BAG IVPB ONE (21:36)
[2023-10-10 21:39] LABS: ERYTHROCYTE SEDIMENTATION RATE 79 mm/hr (0-30)
[2023-10-10] MEDS ORDERED: IVERMECTIN 3 MG TABLET PO ONE (21:45)
[2023-10-10] MEDS: PIPERACILLIN/TAZOB 2.25 GM 2.25 GM in DEXTROSE 5%-WATER - 50 ML IVPB SCH (22:00)
[2023-10-10] MEDS ORDERED: PATIENT'S OWN MEDICATION (NON-FORMULARY) (Sucroferric Oxyhydroxide [Velphoro] 500 MG Tab.C PO SCH (22:00)
[2023-10-10 22:52] LABS: HIV INTERPRETATION PRESUMPTIVE POSITIVE (NEGATIVE)
[2023-10-11] MEDS ORDERED: KCL 10 MEQ IVPB 20 MEQ/200 ML INFUS.BAG IVPB ONE (00:47)
[2023-10-11] MEDS: KCL 10 MEQ IVPB 10 MEQ/100 ML INFUS.BAG IVPB SCH ×2 (01:01→01:16)
[2023-10-11] MEDS ORDERED: ACETAMINOPHEN 325 MG TABLET (FP) PO PRN (01:12)
[2023-10-11] MEDS ORDERED: ACETAMINOPHEN 325 MG TABLET (FP) ONE (01:18)
[2023-10-11] MEDS ORDERED: PIPERACILLIN/TAZOB 2.25 GM 2.25 GM in DEXTROSE 5%-WATER - 50 ML IVPB SCH (02:00)
[2023-10-11] MEDS ORDERED: PIPERACILLIN/TAZOB 2.25 GM 2.25 GM/50 ML BAG IVPB ONE (04:18)
[2023-10-11] MEDS: PIPERACILLIN/TAZOB 2.25 GM 2.25 GM in DEXTROSE 5%-WATER - 50 ML IVPB SCH ×2 (04:37→10:21)
[2023-10-11] MEDS ORDERED: ENOXAPARIN NA (PORCINE) 40 MG/0.4 ML DISP.SYRIN SQ SCH (10:00)
[2023-10-11] MEDS: ATENOLOL 25 MG TABLET (FP) PO SCH (10:21)
[2023-10-11 10:55] LABS: BASO % 0.7 % (0-2.0); EOS % 3.9 % (0-4.5); HEMATOCRIT 33.9 % (32.4-45.2); HEMOGLOBIN 10.8 GM/dL (10.7-15.3); LYMPH % 20.7 % (8-40); MCH 31.1 pg (25.7-33.7); MCHC 31.9 g/dl (32.0-36.0); MEAN CELL VOLUME 97.7 fl (80-96); MEAN PLT VOLUME 8.4 fl (7.5-11.1); MONO % 9.9 % (3.8-10.2); NEUT % 64.8 % (42.8-82.8); PLATELET COUNT 84 10^3/uL (134-434); RBC 3.48 M/mm3 (3.60-5.2); RDW 18.1 % (11.6-15.6); WHITE BLOOD COUNT 3.4 K/mm3 (4.0-10.0)
[2023-10-11 11:12] LABS: POTASSIUM 3.9 mmol/L (3.5-5.1)
[2023-10-11 11:25] LABS: ALBUMIN 2.4 g/dl (3.4-5.0); BLOOD UREA NITROGEN 33.2 mg/dL (7-18); MAGNESIUM 2.4 mg/dL (1.8-2.4)
[2023-10-11 11:28] LABS: CREATININE 5.3 mg/dL (0.55-1.3); PHOSPHOROUS 6.6 mg/dL (2.5-4.9)
[2023-10-11 11:30] LABS: BILIRUBIN,TOTAL 0.7 mg/dL (0.2-1); TOT PROT 8.8 g/dl (6.4-8.2)
[2023-10-11] MEDS: ABACAVIR/DOLUTEGRAVIR/LAMIVUDI (TRIUMEQ) TABLET PO SCH (12:34)
[2023-10-11] MEDS: HEPARIN NA (PORCINE) 5,000 UNITS/ML 1ML VIAL SQ SCH (21:54)
[2023-10-12] MEDS: HEPARIN NA (PORCINE) 5,000 UNITS/ML 1ML VIAL SQ SCH ×3 (05:21→21:47)
[2023-10-12] MEDS: ABACAVIR/DOLUTEGRAVIR/LAMIVUDI (TRIUMEQ) TABLET PO SCH (09:47)
[2023-10-12] MEDS: ATENOLOL 25 MG TABLET (FP) PO SCH (09:47)
[2023-10-12 10:20] LABS: BASO % 1.5 % (0-2.0); HEMATOCRIT 31.9 % (32.4-45.2); HEMOGLOBIN 10.1 GM/dL (10.7-15.3); MCH 31.2 pg (25.7-33.7); MCHC 31.8 g/dl (32.0-36.0); MEAN PLT VOLUME 8.7 fl (7.5-11.1); MONO % 11.3 % (3.8-10.2); NEUT % 58.2 % (42.8-82.8); PLATELET COUNT 82 10^3/uL (134-434); RBC 3.25 M/mm3 (3.60-5.2); RDW 17.7 % (11.6-15.6); WHITE BLOOD COUNT 3.1 K/mm3 (4.0-10.0)
[2023-10-12 10:29] LABS: POTASSIUM 4.3 mmol/L (3.5-5.1)
[2023-10-12 10:35] LABS: BLOOD UREA NITROGEN 51.7 mg/dL (7-18); CALCIUM 8.8 mg/dL (8.5-10.1)
[2023-10-12 10:36] LABS: ALBUMIN 2.5 g/dl (3.4-5.0); MAGNESIUM 2.1 mg/dL (1.8-2.4)
[2023-10-12 10:39] LABS: CREATININE 7.2 mg/dL (0.55-1.3)
[2023-10-12 10:40] LABS: BILIRUBIN,TOTAL 0.6 mg/dL (0.2-1)
[2023-10-12] MEDS: traMADol HCL 50 MG TABLET PO PRN (15:28)
[2023-10-12] MEDS: LORATADINE 10 MG TABLET PO SCH (15:29)
[2023-10-12 17:53] VITALS: BMI 17.2
[2023-10-12] MEDS ORDERED: VANCOMYCIN/WATER FOR INJ (PEG) 1,000 MG/200 ML BAG IVPB ONE (18:00)
[2023-10-12] MEDS: PIPERACILLIN/TAZOB 2.25 GM 2.25 GM in DEXTROSE 5%-WATER - 50 ML IVPB SCH (18:14)
[2023-10-12] MEDS: CLOTRIMAZOLE/BETAMET DIPROP 15 GM TUBE TP SCH (21:47)
[2023-10-12] MEDS: MINERAL OIL/PETROLAT/WATER TOPICAL CREAM 113 GM JAR TP SCH (21:49)
[2023-10-13] MEDS: PIPERACILLIN/TAZOB 2.25 GM 2.25 GM in DEXTROSE 5%-WATER - 50 ML IVPB SCH ×3 (02:23→17:26)
[2023-10-13] MEDS: HEPARIN NA (PORCINE) 5,000 UNITS/ML 1ML VIAL SQ SCH ×3 (05:27→22:38)
[2023-10-13] MEDS ORDERED: SODIUM CHLORIDE 250 ML IV PRN (07:47)
[2023-10-13] MEDS ORDERED: EPOETIN ALFA-EPBX 2,000 UNIT/ML VIAL IVPUSH ONE (11:00)
[2023-10-13 11:11] LABS: BASO % 1.5 % (0-2.0); EOS % 4.5 % (0-4.5); HEMATOCRIT 30.3 % (32.4-45.2); HEMOGLOBIN 9.7 GM/dL (10.7-15.3); LYMPH % 25.2 % (8-40); MCH 31.3 pg (25.7-33.7); MEAN CELL VOLUME 97.8 fl (80-96); NEUT % 57.8 % (42.8-82.8); PLATELET COUNT 83 10^3/uL (134-434); WHITE BLOOD COUNT 3.8 K/mm3 (4.0-10.0)
[2023-10-13 11:41] LABS: CHLORIDE 104 mmol/L (98-107); POTASSIUM 4.5 mmol/L (3.5-5.1); SODIUM 136 mmol/L (136-145)
[2023-10-13 11:49] LABS: GLUCOSE,RANDOM 136 mg/dL (74-106)
[2023-10-13 11:52] LABS: ANION GAP 13 mmol/L (4-13); BLOOD UREA NITROGEN 69.9 mg/dL (7-18); CO2 20 mmol/L (21-32)
[2023-10-13 11:53] LABS: ALBUMIN 2.5 g/dl (3.4-5.0)
[2023-10-13 11:54] LABS: CALCIUM 8.2 mg/dL (8.5-10.1); MAGNESIUM 2.2 mg/dL (1.8-2.4); TOT PROT 8.6 g/dl (6.4-8.2)
[2023-10-13 11:56] LABS: SGOT/AST 50 U/L (15-37); SGPT/ALT 56 U/L (13-61)
[2023-10-13 11:57] LABS: BILIRUBIN,TOTAL 0.4 mg/dL (0.2-1)
[2023-10-13 11:59] LABS: ALK PHOS 94 U/L (45-117)
[2023-10-13 12:02] LABS: CREATININE 8.5 mg/dL (0.55-1.3)
[2023-10-13] MEDS: ATENOLOL 25 MG TABLET (FP) PO SCH (13:29)
[2023-10-13] MEDS: VITAMIN B COMP W-C 1 EA TABLET (NEPHRO-VITE) PO SCH (13:29)
[2023-10-13] MEDS: LORATADINE 10 MG TABLET PO SCH (13:30)
[2023-10-13] MEDS: ABACAVIR/DOLUTEGRAVIR/LAMIVUDI (TRIUMEQ) TABLET PO SCH (13:30)
[2023-10-13] MEDS: MINERAL OIL/PETROLAT/WATER TOPICAL CREAM 113 GM JAR TP SCH ×2 (14:19→22:38)
[2023-10-13] MEDS: CLOTRIMAZOLE/BETAMET DIPROP 15 GM TUBE TP SCH ×2 (14:19→22:38)
[2023-10-13] MEDS: traMADol HCL 50 MG TABLET PO PRN (22:42)
[2023-10-14] MEDS: PIPERACILLIN/TAZOB 2.25 GM 2.25 GM in DEXTROSE 5%-WATER - 50 ML IVPB SCH ×3 (01:23→18:28)
[2023-10-14] MEDS: HEPARIN NA (PORCINE) 5,000 UNITS/ML 1ML VIAL SQ SCH ×3 (06:45→21:41)
[2023-10-14] MEDS: ATENOLOL 25 MG TABLET (FP) PO SCH (09:52)
[2023-10-14] MEDS: ABACAVIR/DOLUTEGRAVIR/LAMIVUDI (TRIUMEQ) TABLET PO SCH (09:52)
[2023-10-14] MEDS: VITAMIN B COMP W-C 1 EA TABLET (NEPHRO-VITE) PO SCH (09:52)
[2023-10-14] MEDS: LORATADINE 10 MG TABLET PO SCH (09:52)
[2023-10-14] MEDS: CLOTRIMAZOLE/BETAMET DIPROP 15 GM TUBE TP SCH ×2 (09:53→21:43)
[2023-10-14] MEDS: MINERAL OIL/PETROLAT/WATER TOPICAL CREAM 113 GM JAR TP SCH ×2 (09:53→21:43)
[2023-10-14] MEDS ORDERED: VANCOMYCIN/WATER FOR INJ (PEG) 1,000 MG/200 ML BAG IVPB ONE (10:00)
[2023-10-14 10:09] LABS: BASO % 0.9 % (0-2.0); EOS % 4.5 % (0-4.5); HEMATOCRIT 30.9 % (32.4-45.2); HEMOGLOBIN 9.8 GM/dL (10.7-15.3); MCHC 31.8 g/dl (32.0-36.0); MEAN CELL VOLUME 97.3 fl (80-96); MEAN PLT VOLUME 8.6 fl (7.5-11.1); MONO % 10.3 % (3.8-10.2); NEUT % 52.3 % (42.8-82.8); PLATELET COUNT 83 10^3/uL (134-434); RBC 3.18 M/mm3 (3.60-5.2); RDW 17.7 % (11.6-15.6)
[2023-10-14 10:21] LABS: POTASSIUM 3.8 mmol/L (3.5-5.1)
[2023-10-14 10:23] LABS: BLOOD UREA NITROGEN 52.7 mg/dL (7-18); CALCIUM 8.6 mg/dL (8.5-10.1); MAGNESIUM 2.1 mg/dL (1.8-2.4)
[2023-10-14 10:24] LABS: ALBUMIN 2.3 g/dl (3.4-5.0)
[2023-10-14 10:28] LABS: BILIRUBIN,TOTAL 0.4 mg/dL (0.2-1); TOT PROT 8.3 g/dl (6.4-8.2)
[2023-10-14] MEDS ORDERED: SODIUM CHLORIDE 250 ML IV PRN (14:41)
[2023-10-15] MEDS: PIPERACILLIN/TAZOB 2.25 GM 2.25 GM in DEXTROSE 5%-WATER - 50 ML IVPB SCH ×2 (01:00→13:07)
[2023-10-15 01:07] LABS: D001 D PTERONYSSINUS <0.10 kU/L (Class 0); D002 D FARINAE MITE <0.10 kU/L (Class 0); E005 DOG HAIR/DANDER <0.10 kU/L (Class 0); F001 EGG WHITE <0.10 kU/L (Class 0); F018 BRAZIL NUT < 0.10 kU/L (Class 0); F201 PECAN NUT < 0.10 kU/L (Class 0); M006-ALTERNARIA <0.10 kU/L (Class 0)
[2023-10-15] MEDS: HEPARIN NA (PORCINE) 5,000 UNITS/ML 1ML VIAL SQ SCH ×2 (06:31→13:07)
[2023-10-15] MEDS ORDERED: EPOETIN ALFA-EPBX 4,000 UNIT/ML VIAL IVPUSH ONE (09:45)
[2023-10-15 10:01] LABS: BASO % 0.9 % (0-2.0); EOS % 4.9 % (0-4.5); HEMATOCRIT 29.8 % (32.4-45.2); HEMOGLOBIN 9.6 GM/dL (10.7-15.3); MCH 31.3 pg (25.7-33.7); MCHC 32.1 g/dl (32.0-36.0); MEAN CELL VOLUME 97.4 fl (80-96); MEAN PLT VOLUME 9.3 fl (7.5-11.1); MONO % 8.9 % (3.8-10.2); NEUT % 60.3 % (42.8-82.8); PLATELET COUNT 96 10^3/uL (134-434); RBC 3.06 M/mm3 (3.60-5.2); RDW 17.6 % (11.6-15.6)
[2023-10-15 10:24] LABS: CHLORIDE 99 mmol/L (98-107); SODIUM 133 mmol/L (136-145)
[2023-10-15 10:25] LABS: CALCIUM 8.6 mg/dL (8.5-10.1)
[2023-10-15 10:26] LABS: ANION GAP 9 mmol/L (4-13); BLOOD UREA NITROGEN 71.7 mg/dL (7-18); CO2 25 mmol/L (21-32); GLUCOSE,RANDOM 145 mg/dL (74-106)
[2023-10-15 10:27] LABS: ALBUMIN 2.2 g/dl (3.4-5.0)
[2023-10-15 10:29] LABS: SGOT/AST 28 U/L (15-37); SGPT/ALT 39 U/L (13-61)
[2023-10-15 10:32] LABS: ALK PHOS 105 U/L (45-117); BILIRUBIN,TOTAL 0.4 mg/dL (0.2-1); TOT PROT 8.3 g/dl (6.4-8.2)
[2023-10-15 10:34] LABS: CREATININE 7.5 mg/dL (0.55-1.3)
[2023-10-15 10:42] VITALS: TEMP 97.8
[2023-10-15 12:20] VITALS: RESP 18
[2023-10-15] MEDS: VITAMIN B COMP W-C 1 EA TABLET (NEPHRO-VITE) PO SCH (13:09)
[2023-10-15] MEDS: ATENOLOL 25 MG TABLET (FP) PO SCH (13:09)
[2023-10-15] MEDS: LORATADINE 10 MG TABLET PO SCH (13:09)
[2023-10-15] MEDS: ABACAVIR/DOLUTEGRAVIR/LAMIVUDI (TRIUMEQ) TABLET PO SCH (13:10)
[2023-10-15] MEDS: CLOTRIMAZOLE/BETAMET DIPROP 15 GM TUBE TP SCH (13:10)
[2023-10-15] MEDS: MINERAL OIL/PETROLAT/WATER TOPICAL CREAM 113 GM JAR TP SCH (13:10)
[2023-10-15 14:22] VITALS: BP 129/78; PULSE 71
[2023-10-15] MEDS ORDERED: VANCOMYCIN/WATER FOR INJ (PEG) 1,000 MG/200 ML BAG IVPB ONE (15:35)
== END 2023-10-15 17:18 | disposition home or self-care (01) | DRG 606 ==
LOC: JER 15:34 → JERBED 18:43 → OBSVTOIN 19:48 → J5S 10-11 08:22
PROVIDERS: ADMIT Internal Medicine; ATTEND Internal Medicine
PROC: 5A1D70Z Performance of Urinary Filtration, Intermittent, Less than 6 Hours Per Day (ICD-10-PCS; principal; 2023-10-13)
PROC: 5A1D70Z Performance of Urinary Filtration, Intermittent, Less than 6 Hours Per Day (ICD-10-PCS; 2023-10-15)
DX: L30.8 Other specified dermatitis (principal); N18.6 End stage renal disease; L03.113 Cellulitis of right upper limb; I12.0 Hypertensive chronic kidney disease with stage 5 chronic kidney disease or end stage renal disease; N17.9 Acute kidney failure, unspecified; R21 Rash and other nonspecific skin eruption; Z99.2 Dependence on renal dialysis; E11.22 Type 2 diabetes mellitus with diabetic chronic kidney disease; Z21 Asymptomatic human immunodeficiency virus [HIV] infection status; F39 Unspecified mood [affective] disorder; D69.6 Thrombocytopenia, unspecified; E87.6 Hypokalemia; E88.09 Other disorders of plasma-protein metabolism, not elsewhere classified; Z91.148 Patient's other noncompliance with medication regimen for other reason
CPT/HCPCS: 36415; 73130-TC-RT-FY; 73200-TC-RT; 80053; 83036; 83735; 84100; 84550; 85025; 85027; 85651; 86003; 86140; 86359; 86360; 86704; 86780; 86803; 87081; 87340; 87389; 87517; 93005; 93010; 97116-GP; 97161-GP; 99285-25; G0378; G0480; J1644; Q5106